=== PATIENT | male | born 1975 | race Caucasian/White ===

== ENCOUNTER 2021-07-04 07:58 | Outpatient (REF) | payer OTHER, SELFPAY ==
[2021-07-04 08:25] LABS: Hematocrit 40.3 % (42-52); Hemoglobin 14.1 g/dl (14.0-18.0); Mean Corpuscular Hemoglobin 30.9 pg (27.0-33.0); Mean Corpuscular Volume 88.4 fL (80-98); Mean Platelet Volume 10.1 fL (9.4-12.4); Platelet Count 217 X10*3/uL (160-400); Red Blood Count 4.56 X10*6/uL (4.60-5.80)
[2021-07-04 08:35] LABS: Estimated Average Glucose 108 mg/dL; Hemoglobin A1c % 5.4 %
[2021-07-04 09:13] LABS: Alanine Aminotransferase 102 U/L (0-40); Albumin Level 4.4 g/dL (3.5-5.0); Alkaline Phosphatase 57 U/L (39-117); Anion Gap 11 (12-20); Aspartate Amino Transferase 69 U/L (5-37); Bilirubin Total 0.8 mg/dL (0.0-1.0); Blood Urea Nitrogen 18 mg/dL (9-16); Calcium 9.5 mg/dL (8.4-10.2); Carbon Dioxide 28 mmol/L (22-29); Chloride 103 mmol/L (96-108); Cholesterol 176 mg/dL; Estimated Glomerular Filt Rate > 60; Glucose Fasting 116 mg/dL (60-99); HDL Cholesterol 34 mg/dL; LDL Cholesterol Calculated 84 mg/dl; Potassium 4.5 mmol/L (3.3-5.1); Sodium 137 mmol/L (135-145); Total Protein 7.2 g/dL (6.5-8.0); Triglycerides 293 mg/dL
[2021-07-04 09:35] LABS: TSH reflex Free T4 4.99 uIU/mL (0.32-4.0)
[2021-07-04 10:19] LABS: Free T4 (Free Thyroxine) 0.78 ng/dL (0.71-1.85)
[2021-07-04 11:30] LABS: Creatinine Urine 124.97 mg/dL; Microalbum/Creatinine Ratio Ur 11.2 ug/mg cr
== END 2021-07-04 07:59 | disposition home or self-care (01) ==
LOC: HO.LAB 07:58
PROVIDERS: PCP Physician Assistant; Visit Provider Physician Assistant
DX: I10 Essential (primary) hypertension (principal)
CPT/HCPCS: 36415; 80053; 80061; 82043; 83036; 84439; 84443; 85027

== ENCOUNTER 2022-08-15 10:35 | Emergency (ER) | payer OTHER, SELFPAY ==
--- NOTE | ~2022-08-15 | XR_ITS ---
EXAMINATION: XR FINGER, LEFT CLINICAL INFORMATION: Second digit pain status post injury COMPARISON: None TECHNIQUE: 3 views of the left index finger. FINDINGS: The bones and soft tissues are normal. No fracture. Alignment is anatomic. Joint spaces are maintained. XR/XR finger LT min 2V IMPRESSION: Normal finger radiographs.
[2022-08-15 10:54] VITALS: BP 147/88; PULSE 92; RESP 18; O2SAT 97; BMI 35.7
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
== END 2022-08-15 12:37 | disposition home or self-care (01) ==
PROVIDERS: Emergency Provider Emergency Medicine; PCP Physician Assistant
DX: S60.222A Contusion of left hand, initial encounter (principal); S60.022A Contusion of left index finger without damage to nail, initial encounter; Y33.XXXA Other specified events, undetermined intent, initial encounter; Y93.9 Activity, unspecified; Y92.9 Unspecified place or not applicable; Y99.0 Civilian activity done for income or pay; Z79.899 Other long term (current) drug therapy
CPT/HCPCS: 29130; 73140; 99282; 99283

== ENCOUNTER → 2022-08-16 07:45 | Outpatient (BNVA) | payer OTHER, SELFPAY | PROVIDERS: PCP Physician Assistant; Visit Provider Internal Medicine | DX: S63.631A Sprain of interphalangeal joint of left index finger, initial encounter (principal); Y33.XXXA Other specified events, undetermined intent, initial encounter | CPT/HCPCS: 99202 ==

== ENCOUNTER → 2022-11-20 10:13 | Outpatient (BNVA) | payer OTHER, SELFPAY | PROVIDERS: PCP Physician Assistant; Visit Provider Urology | DX: F41.8 Other specified anxiety disorders (principal) ==

== ENCOUNTER 2022-12-19 08:00 | Outpatient (REF) | payer OTHER, SELFPAY ==
[2022-12-19 10:48] LABS: MANUAL DIFF FLAG NO
[2022-12-19 10:59] LABS: Basophils Percent Auto 0.4 % (0-2); Eosinophils Absolute Auto 0.2 X10*3/uL (0.0-0.4); Eosinophils Percent Auto 2.6 % (0-4); Hematocrit 40.9 % (42.0-52.0); Hemoglobin 14.2 g/dl (14.0-18.0); Imm Gran Abs Auto 0.02 X10*3/uL (0.00-0.03); Imm Gran Pct Auto 0.3 % (0.0-0.4); Lymphocytes Absolute Auto 1.8 X10*3/uL (1.2-4.9); Lymphocytes Percent Auto 26.3 % (20-40); Mean Corpuscular HGB Conc 34.7 g/dl (31.0-36.0); Mean Corpuscular Hemoglobin 30.1 pg (27.0-33.0); Mean Corpuscular Volume 86.7 fL (80.0-98.0); Mean Platelet Volume 10.5 fL (9.4-12.4); Monocytes Absolute Auto 0.7 X10*3/uL (0.1-1.2); Monocytes Percent Auto 9.8 % (2-11); Neutrophils Absolute Auto 4.2 x10*3/uL (2.0-8.3); Neutrophils Percent Auto 60.6 % (45-73); Platelet Count 213 X10*3/uL (160-400); Red Blood Count 4.72 X10*6/uL (4.60-5.80); Red Cell Distribution Width 11.9 % (11.0-16.0); White Blood Count 6.9 X10*3/uL (4.8-10.8)
[2022-12-19 11:16] LABS: Estimated Average Glucose 160 mg/dL; Hemoglobin A1c % 7.2 %
[2022-12-19 11:36] LABS: Alanine Aminotransferase 90 U/L (0-40); Albumin Level 4.2 g/dL (3.5-5.0); Alkaline Phosphatase 62 U/L (39-117); Anion Gap 11 (12-20); Aspartate Amino Transferase 48 U/L (5-37); Bilirubin Total 0.8 mg/dL (0.0-1.0); Blood Urea Nitrogen 17 mg/dL (9-16); Calcium 9.2 mg/dL (8.4-10.2); Carbon Dioxide 29 mmol/L (22-29); Chloride 102 mmol/L (96-108); Cholesterol 165 mg/dL; Estimated Glomerular Filt Rate > 60; Glucose Random 147 mg/dL (60-115); HDL Cholesterol 26 mg/dL; LDL Cholesterol Calculated 104 mg/dl; Potassium 3.9 mmol/L (3.3-5.1); Sodium 138 mmol/L (135-145); Total Protein 6.6 g/dL (6.5-8.0); Triglycerides 178 mg/dL
[2022-12-19 11:42] LABS: Free T4 (Free Thyroxine) 0.78 ng/dL (0.71-1.85); Thyroid Stimulating Hormone 5.32 uIU/mL (0.32-4.0)
[2022-12-19 11:54] LABS: Folate 12.1 ng/mL (> or = 4.0); Vitamin B12 411 pg/mL (200-900)
== END 2022-12-19 08:01 | disposition home or self-care (01) ==
LOC: HO.10HDL 08:00
PROVIDERS: Visit Provider Internal Medicine
DX: I10 Essential (primary) hypertension (principal); E78.00 Pure hypercholesterolemia, unspecified
CPT/HCPCS: 36415; 80053; 80061; 82607; 82746; 83036; 84439; 84443; 85025

== ENCOUNTER → 2023-01-09 13:37 | Outpatient (BNVA) | payer OTHER, SELFPAY | PROVIDERS: PCP Physician Assistant; Visit Provider Urology | DX: Z30.2 Encounter for sterilization (principal); F41.8 Other specified anxiety disorders | CPT/HCPCS: 55250 ==

== ENCOUNTER → 2023-04-15 15:03 | Outpatient (BNVA) | payer OTHER, SELFPAY | PROVIDERS: PCP Physician Assistant; Visit Provider Urology ==

== ENCOUNTER 2023-07-18 15:03 | Outpatient (AMB) | payer OTHER, SELFPAY ==
--- NOTE | 2023-07-18 15:13 | A.OFFVIS_ITS ---
Intake Vital Signs 3 07/18/23 15:15 Height 5 ft 8 in Weight 233 lb 3.985 oz BMI 35.5 BP 136/77 Blood Pressure Location Lt brachial Position Sitting Pulse 86 Intake Visit Reasons: Colonoscopy Screening Intake Note: Patient presents to in office visit today as a new patient for colonoscopy screening. CC: Patient reports doing well. Denies having any GI symptoms today. Composition Worker Required: No Allergies No Known Allergies Allergy (Verified 07/18/23 15:22) HPI Colonoscopy Screening 2 HPI0 Details 47-year-old male here for preprocedural meeting to discuss a screening colonoscopy. He is referred by Jerome Moraes of [facility] primary care. PMX TAHIR Diabetes - he denies Obesity Elevated TSH Hypertension Health anxiety * SURGICAL HISTORY Appendecomy Vasectomy * ALLERGIES: NKDA * [place] LABS: Laboratory Tests 12/19/22 12/19/22 08:10 08:10 WBC 6.9 Hgb 14.2 Hct 40.9 L Plt Count 213 Estimated GFR > 60 Total Bilirubin 0.8 AST 48 H ALT 90 H Alkaline Phosphata se 62 TSH 5.32 H Free T4 0.78 TODAY'S VISIT This is his first colonoscopy. Denies any bowel or upper GI problems. There are no prior problems with anesthesia or sedation. He has TAHIR but no other respiratory problems and he denies any cardiac problems. No ID problems. There is no known FHX of crc or polyps. 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 Cognitive needs: No Hearing needs: No Vision needs: No Review of Systems Const Denies fatigue, Denies fever(s), Denies night sweats, Denies poor appetite and Denies weight loss ENT Reports Normal hearing present, Denies dental pain, Denies dysphagia, Denies hearing loss, Denies mouth pain, Denies odynophagia, Denies throat swelling, Denies tongue swelling and Reports other (Dentition adequate) Card Reports no additional complaints Resp Reports no additional complaints GI Denies abdominal pain, Denies melena, Denies bloating, Denies hematochezia, Denies constipation, Denies GI cramping, Denies dysphagia, Denies excessive flatus, Denies early satiety, Denies heartburn, Denies diarrhea, Denies nausea, Denies odynophagia, Denies vomiting and Denies hematemesis Skin/Breast Denies pruritus, Denies lesions, Denies rash and Denies jaundice Neuro Reports Normal hearing present and Denies Abnormal speech present Endo Denies fatigue Aller/Immun Denies throat swelling and Denies tongue swelling Physical Exam Vital Signs: Last Vital Signs Pulse 86 07/18/23 15:15 BP 136/77 07/18/23 15:15 BMI result Body Mass Index 35.5 Const General: cooperative, no acute distress, well developed and well groomed Nutritional Appearance: well nourished and obese centrally obese Orientation/consciousness: oriented to person, oriented to place and oriented to time Limitations: No language barrier HEENT Head: Yes normocephalic and Yes atraumatic Eyes General: appearance normal, both eyes and all related structures Pupils: Equal, round and reactive pupils present Neck Neck: Yes normal visual inspection and Yes no lymphadenopathy Thyroid: Thyroid normal Resp Effort & Inspection: normal respiratory effort and able to speak in complete sentences Auscultation: clear to auscultation bilaterally Cardio Rate: regular rate Rhythm: regular rhythm Heart sounds: Normal, physiologic split S2 sound present Peripheral pulses: radial pulses present and posterior tibial pulses present GI Inspection: No distended, No Abdominal panniculus present, Yes obesity and Yes striae Palpation (GI): Soft to palpation, nontender, no guarding, not rigid and No hepatosplenomegaly present Percussion: Yes normal to percussion Auscultation: normal bowel sounds Rectal Exam - Male: Yes deferred Abdomen image: 2 1. lap surgical scars 2. Skin General skin exam: no rashes or lesions noted, turgor normal, skin not dry, no jaundice, No spider nevi and no striae Rashes: no rashes Nails: normal Neuro General: oriented to person, oriented to place and oriented to time Cranial nerves: Yes Equal, round and reactive pupils present and Yes Normal hearing present Speech: No Abnormal speech present Extrem General: Yes normal to inspection, No clubbing, No cyanosis and No edema Psych Appearance: grossly normal and well kempt Mental Status: mental status grossly normal Speech and movement: Normal speech and movement present Affect: normal affect Attitude: cooperative Thought process: Normal thought process present and not confabulating Thought content: Normal thought content present Insight: Fair insight present (Psych) Judgement: Fair judgement present (Psych) Assessment & Plan Assessment & Plan (1) Pre-op examination: Code(s): Z01.818 - Encounter for other preprocedural examination Plan: This is his first colonoscopy. Denies any bowel or upper GI problems. There are no prior problems with anesthesia or sedation. He has TAHIR but no other respiratory problems and he denies any cardiac problems. No ID problems. There is no known FHX of crc or polyps. SUPREP SENT Orders: Orders 2 Colonoscopy - GI Use Only 07/18/23 Z01.818 - Encounter for other preprocedural examination Medications: New 2 sodium,potassium,mag sulfates 17.5-3.13-1.6 gram (Suprep Bowel Prep Kit) 480 mL orally; 354 mL 0RF Z01.818 - Encounter for other preprocedural examination Coding Level of Care Code New Pt Level 3 (29569) Diagnoses Pre-op examination Z01.818
[2023-07-18 15:15] VITALS: BP 136/77; PULSE 86; BMI 35.5
== END 2023-07-18 16:27 | disposition home or self-care (01) ==
PROVIDERS: PCP Physician Assistant; Visit Provider Nurse Practitioner
DX: Z01.818 Encounter for other preprocedural examination (principal)
CPT/HCPCS: 99203

== ENCOUNTER → 2023-07-18 15:03 | Outpatient (BNVA) | payer OTHER, SELFPAY | PROVIDERS: PCP Physician Assistant; Visit Provider Nurse Practitioner ==

== ENCOUNTER 2023-12-22 11:08 | Day surgery (SDC) | payer OTHER, SELFPAY ==
--- NOTE | 2023-12-19 10:19 | HO.ANESPROP2 ---
HPI - Anesthesia Eval Consult details Narrative: 48yo M for Colonoscopy PMF Active Problems Active Problems: All Active Problems (Updated 07/18/23 @ 15:25 by FRANCIS Mena) Pre-op examination (Acute) Annual physical exam (Acute) TAHIR (obstructive sleep apnea) (Acute) Colon cancer screening (Acute) DMII (diabetes mellitus, type 2) (Acute) Anxiety about health (Acute) Encounter for vasectomy assessment (Acute) Obese (Acute) Elevated TSH (Acute) HTN (hypertension) (Acute) Past Medical History Medical History TAHIR (obstructive sleep apnea) HTN (hypertension) Family History Family History Mother HTN (hypertension) Social History Social History Housing: House Alcohol intake: current Alcohol intake frequency: a few times a month Alcohol type: beer Patient Tobacco Use Status: Never used Tobacco e-Cigarette/Vaping Use: Never Used Second Hand Smoke Exposure: Yes service: No Current occupational status: employed 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
[2023-12-22 11:57] VITALS: BMI 35.2
[2023-12-22 12:10] VITALS: BP 113/70; PULSE 95; RESP 18; TEMP 36.9; O2SAT 95
--- NOTE | 2023-12-22 12:45 | MHC.SHP ---
Pre-Procedural Eval Section A - 24 Hr Update-Section A only Date of Service: 12/22/23 The patient is an INPATIENT: No The patient has been examined within 24 hours of the surgical procedure. The History & Physical has been completed within 30 days and I have reviewed it.: No Section B - Complete if H&P > 30 days Chief Complaint: Colon cancer screening Relevant Family History (Specify if Yes): No Relevant Social History: None Present Medications: see Short Stay Collaborative assessment Medical History: Significant History (TAHIR Diabetes - he denies Obesity Elevated TSH Hypertension ) History of Previous Operations: Relevant previous surgery/procedure and date(s) (Appendecomy Vasectomy) Allergies: Allergies Allergy/AdvReac Type Severity Reaction Status Date / Time No Known Allergies Allergy Verified 07/18/23 15:22 Review of Systems Sugical H&P ROS: Negative: Constitution, Cardiovascular, Respiratory and Gastrointestinal Exam Surgical H&P Exam: Normal: Heart, Normal: Lungs, Normal: Extremities and Normal: Abdomen Plan Diagnosis/Plan: Unchanged I have reviewed the history and physical and performed a pertinent physical examination on my patient. No changes have occurred unless specified. Time Spent With Patient Time: Total time managing care of this patient today ____ minutes.
--- NOTE | 2023-12-22 12:50 | HO.ANESPROP2 ---
[facility] Active Problems Active Problems: All Active Problems (Updated 12/22/23 @ 12:13 by Giovanna Shankar RN) Pre-op examination (Acute) Annual physical exam (Acute) Colon cancer screening (Acute) Anxiety about health (Acute) Encounter for vasectomy assessment (Acute) Obese (Acute) Elevated TSH (Acute) Past Medical History Medical History TAHIR (obstructive sleep apnea) HTN (hypertension) Functional capacity: independent ambulation Family History Family History Mother HTN (hypertension) Family history of problems with anesthesia: No Surgical History History of Problems with Anesthesia: No Social History Social History Housing: House Alcohol intake: current Alcohol intake frequency: a few times a month Alcohol type: beer Patient Tobacco Use Status: Never used Tobacco e-Cigarette/Vaping Use: Never Used Second Hand Smoke Exposure: Yes Have you been hit, kicked, punched, or otherwise hurt by someone within the past year? 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 Cognitive needs: No Hearing needs: No Vision needs: No Meds Allergies Allergy/AdvReac Type Severity Reaction Status Date / Time No Known Allergies Allergy Verified 07/18/23 15:22 Active Medications: Current Medications Lactated Ringer's (Lr) 1,000 mls @ 100 mls/hr IVCONT .Q10H [place]IL[place] Exam Height,Weight and Vital Signs: Height 5 ft 8 in Weight 105.143 kg Last Vital Signs Temp 98.4 F 12/22/23 12:10 Pulse 95 12/22/23 12:10 Resp 18 12/22/23 12:10 BP 113/70 12/22/23 12:10 Pulse Ox 95 12/22/23 12:10 O2 Del Method Room Air 12/22/23 12:10 Airway Mallampati Class: III TM Dist: >3cm Neck ROM: Full Heart: RRR Lungs: CTA Assessment and Plan Assessment Anesthesia Assessment: Anesthesia Plan Discussed Final Anesthetic Review Family History of Problems with Anesthesia: No History of Problems with Anesthesia: No NPO: Yes ASA Class: II and III Final Preanesthetic Review: Meds/Allgs Chart Reviewed, Consent Obtained/Reviewed and Anes Risks/Benef Reviewed Patient Risk: Intermediate Procedure Risk: Low Anesthetic Plan Anesthetic Plan: MAC: Disposition: Standard PACU
--- NOTE | 2023-12-22 13:39 | W.PM.OPN ---
Operative Note Operative Note Date of Service: 12/22/23 Narrative: COLONOSCOPY TILL CECUM WITH BIOPSIES, SNARE POLYPECTOMY, SUBMUCOSAL INJECTION AND HEMOCLIP PLACEMENT Pre-op diagnosis: Colon cancer screening (1st colonoscopy) Post-op diagnosis:? Colon polyps, diverticulosis, hemorrhoids Endoscopist:? Cheryl Orta MD Anesthesia:?MAC Consent: Indications for the procedure and potential complications of bleeding, perforation, reaction to medications and missed diagnosis were discussed with the patient and informed consent was obtained. Instrument: Olympus PCF H 190 L variable stiffness pediatric colonoscope Monitoring: Vital signs and clinical assessment, intermittent blood pressure monitoring, continuous EKG monitoring, Pulse oximetry and Carbon Dioxide monitoring were done throughout the procedure. Please see anesthesia flowsheet. Colon withdrawl time was 43 minutes. Procedure: The patient was placed in the left lateral decubitis position and pre-procedure medications were administered. After a digital rectal examination of the ano-rectum, the video colonoscope was inserted into the rectum and advanced through the colon to the cecum. The colonoscope was slowly withdrawn in a retrograde panoramic fashion and the colon mucosa was carefully examined including a retroflexed view of the rectum. Findings and interventions are described below. Procedure Difficulty: Colon was long and tortuous and there was excessive spasm and some loop formation Findings: Terminal Ileum: Not evaluated Cecum: A 4-5 mm sessile polyp -removed with a cold biopsy Ascending Colon: A 15 mm sessile polyp in the distal AC. Polyp was raised with 3 cc of Eleview and removed with a cold snare. Polypectomy site was closed with 1 hemoclip Transverse Colon: A 15 to 18 mm sessile polyp - removed with a hot snare. Polypectomy site was closed with 1 hemoclip Descending Colon: Moderate diverticulosis Sigmoid Colon: A 15 mm sessile polyp at 25 cms - removed with a hot snare. Polypectomy site was closed with 1 hemoclip. Moderate diverticulosis Rectum: A 10 mm sessile polyp in the distal rectum just inside the anal verge Ano-rectum: Moderate internal hemorrhoids Colon preparation: Good after copious irrigation and fair in the right colon Philadelphia Bowel Preparation Scale Right colon; 1 Transverse colon: 2 Left colon; 2 (0 = Unprepared colon segment with mucosa not seen due to solid stool that cannot be cleared. 1 = Portion of mucosa of the colon segment seen, but other areas of the colon segment not well seen due to staining, residual stool and/or opaque liquid. 2 = Minor amount of residual staining, small fragments of stool and/or opaque liquid, but mucosa of colon segment seen well. 3 = Entire mucosa of colon segment seen well with no residual staining, small fragments of stool or opaque liquid) Impression and Post Procedure Diagnosis: Colonoscopy Findings: One small and four medium sized polyps removed Moderate diverticulosis seen in the left colon Moderate hemorrhoids on retroflexed exam. Plan: Await pathology results Patient has an appointment on 01/06/24 in the GI [facility] with Zofia Quiroga NP. Repeat Colonoscopy interval based on path results - in 1 year if polyps are adenomatous and due to fair prep in the right colon. (Pt needs Dilcolax 2 tablets daily starting 3 days before his colon appt and an adult colonoscope for future colonoscopies) Above findings were reviewed with the patient and colon polyps and diverticulosis handouts were given in the discharge area
[2023-12-22 14:50] VITALS: BP 110/50; PULSE 86; RESP 16; TEMP 36.4; O2SAT 96
[2023-12-22 15:05] VITALS: BP 112/62; PULSE 73; RESP 20; TEMP 36.5; O2SAT 95
== END 2023-12-22 15:37 | disposition home or self-care (01) ==
PROVIDERS: PCP Physician Assistant; Visit Provider Internal Medicine Gastroenterology
PROC: 0DJD8ZZ Inspection of Lower Intestinal Tract, Via Natural or Artificial Opening Endoscopic (ICD-10-PCS; CPT 45378; principal; 2023-12-22 13:00)
DX: Z12.11 Encounter for screening for malignant neoplasm of colon (principal); D12.0 Benign neoplasm of cecum; D12.2 Benign neoplasm of ascending colon; D12.3 Benign neoplasm of transverse colon; D12.5 Benign neoplasm of sigmoid colon; D12.8 Benign neoplasm of rectum; K57.30 Diverticulosis of large intestine without perforation or abscess without bleeding; K64.8 Other hemorrhoids; K56.2 Volvulus; I10 Essential (primary) hypertension; G47.33 Obstructive sleep apnea (adult) (pediatric); Z99.89 Dependence on other enabling machines and devices; Z79.899 Other long term (current) drug therapy
CPT/HCPCS: 45385; 45380; 45381; 88305; J1610; J2250; J2704

== ENCOUNTER → 2023-12-22 11:08 | Outpatient (BNV) | payer OTHER, SELFPAY | PROVIDERS: PCP Physician Assistant; Visit Provider Internal Medicine Gastroenterology | DX: Z12.11 Encounter for screening for malignant neoplasm of colon (principal); D12.3 Benign neoplasm of transverse colon; D12.2 Benign neoplasm of ascending colon; D12.0 Benign neoplasm of cecum; K57.90 Diverticulosis of intestine, part unspecified, without perforation or abscess without bleeding; K64.8 Other hemorrhoids | CPT/HCPCS: 45380; 45381; 45385 ==

== ENCOUNTER 2024-01-06 08:11 | Outpatient (AMB) | payer OTHER, SELFPAY ==
--- NOTE | 2024-01-06 08:23 | MHC.OFFVIS ---
Intake Vital Signs 01/06/24 08:26 Height 5 ft 8 in Weight 225 lb BMI 34.2 BP 136/70 Blood Pressure Location Lt brachial Position Sitting Pulse 77 Intake Visit Reasons: s/p colon Intake Note: Patient follow up for Colonoscopy results. Patient denies any GI issues. Performance Improvement Specialist Required: No Accompanied by: Self / Same As Patient Allergies No Known Allergies Allergy (Verified 01/06/24 08:23) HPI s/p colon HPI Details Assessment & Plan (1) Pre-op examination: Code(s): Z01.818 - Encounter for other preprocedural examination Plan: This is his first colonoscopy. Denies any bowel or upper GI problems. There are no prior problems with anesthesia or sedation. He has TAHIR but no other respiratory problems and he denies any cardiac problems. No ID problems. There is no known FHX of crc or polyps. SUPREP SENT Orders: Orders Colonoscopy - GI U se Only 07/18/23 Z01.818 - Encounte r for other prepro cedural examinatio n Medications: New sodium,potassium,m ag sulfates 17.5-3 .13-1.6 gram (Supr ep Bowel Prep Kit) 480 mL orally; 35 4 mL 0RF Z01.818 - Encounte r for other prepro cedural examinatio n COLONOSCOPY 12/22/23 Findings: Terminal Ileum: Not evaluated Cecum: A 4-5 mm sessile polyp -removed with a cold biopsy Ascending Colon: A 15 mm sessile polyp in the distal AC. Polyp was raised with 3 cc of Eleview and removed with a cold snare. Polypectomy site was closed with 1 hemoclip Transverse Colon: A 15 to 18 mm sessile polyp - removed with a hot snare. Polypectomy site was closed with 1 hemoclip Descending Colon: Moderate diverticulosis Sigmoid Colon: A 15 mm sessile polyp at 25 cms - removed with a hot snare. Polypectomy site was closed with 1 hemoclip. Moderate diverticulosis Rectum: A 10 mm sessile polyp in the distal rectum just inside the anal verge Ano-rectum: Moderate internal hemorrhoids Colon preparation: Good after copious irrigation and fair in the right colon Impression and Post Procedure Diagnosis: Colonoscopy Findings: One small and four medium sized polyps removed Moderate diverticulosis seen in the left colon Moderate hemorrhoids on retroflexed exam. Plan: Await pathology results Patient has an appointment on 01/06/24 in the [facility] with Zofia Quiroga NP. Repeat Colonoscopy interval based on path results - in 1 year if polyps are adenomatous and due to fair prep in the right colon. (Pt needs Dilcolax 2 tablets daily starting 3 days before his colon appt and an adult colonoscope for future colonoscopies) BIOPSY Received: 12/22/23 Diagnosis A. Cecum, polypectomy: Tubular adenoma; negative for high-grade dysplasia or carcinoma. B. Colon, ascending, polypectomy: Tubular adenoma; negative for high-grade dysplasia or carcinoma. C. Colon, transverse, polypectomy: Tubular adenoma; negative for high-grade dysplasia or carcinoma. D. Colon, sigmoid at 25 cm, polypectomy: Fragments of tubular adenoma; negative for high-grade dysplasia or carcinoma. E. Rectum, polypectomy: Tubular adenoma; negative for high-grade dysplasia or carcinoma. TODAY'S VISIT The procedure needs to be repeated in 1 year due to the finding of 5 polyps several of them larger than 1 cm. He also needs better prep. The procedure was well tolerated. The results were explained and the patient is agreeable to the follow-up interval as stated. The bowel pattern has returned to normal. Education was provided to tell any 1st degree relatives about their findings to be sure that they are screened by age 45. Educated that they will be put on a recall list when it is time for their repeat scope but should they move out of state or away from the hospital they will need to remember along with their primary to repeat the procedure in a timely fashion to avoid any adverse complications. [facility] Medical History (Updated 01/06/24 @ 08:30 by FRANCIS Mena) Pre-op examination Annual physical exam Colon cancer screening TAHIR (obstructive sleep apnea) HTN (hypertension) Surgical History (Updated 01/06/24 @ 08:24 by Marian Mahoney) Hx of colonoscopy Family History Mother HTN (hypertension) Social History Housing: House Alcohol intake: current Alcohol intake frequency: a few times a month Alcohol type: beer Patient Tobacco Use Status: Never used Tobacco e-Cigarette/Vaping Use: Never Used Second Hand Smoke Exposure: Yes service: No Current occupational status: employed 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 Cognitive needs: No Hearing needs: No Vision needs: No Review of Systems Const Denies fatigue, Denies fever(s), Denies night sweats, Denies poor appetite and Denies weight loss ENT Reports Normal hearing present, Denies dental pain, Denies dysphagia, Denies hearing loss, Denies mouth pain, Denies odynophagia, Denies throat swelling, Denies tongue swelling and Reports other (Dentition adequate) Card Reports no additional complaints Resp Reports no additional complaints GI Details: Denies abdominal pain, Denies melena, Denies bloating, Denies hematochezia, Denies constipation, Denies GI cramping, Denies dysphagia, Denies excessive flatus, Denies early satiety, Denies heartburn, Denies diarrhea, Denies nausea, Denies odynophagia, Denies vomiting and Denies hematemesis Skin/Breast Denies pruritus, Denies lesions, Denies rash and Denies jaundice Neuro Reports Normal hearing present and Denies Abnormal speech present Endo Denies fatigue Aller/Immun Denies throat swelling and Denies tongue swelling Physical Exam Vital Signs: Last Vital Signs Pulse 77 01/06/24 08:26 BP 136/70 01/06/24 08:26 BMI result Body Mass Index 34.2 Const General: cooperative, no acute distress, well developed and well groomed Nutritional Appearance: well nourished and obese Orientation/consciousness: oriented to person, oriented to place and oriented to time Limitations: No language barrier HEENT Head: Yes normocephalic and Yes atraumatic Eyes General: appearance normal, both eyes and all related structures Pupils: Equal, round and reactive pupils present Neck Neck: Yes normal visual inspection and Yes no lymphadenopathy Thyroid: Thyroid normal Resp Effort & Inspection: normal respiratory effort and able to speak in complete sentences Auscultation: clear to auscultation bilaterally Cardio Rate: regular rate Rhythm: regular rhythm Heart sounds: Normal, physiologic split S2 sound present Peripheral pulses: radial pulses present and posterior tibial pulses present GI Inspection: No distended and No Abdominal panniculus present Palpation (GI): Soft to palpation, nontender, no guarding, not rigid and No hepatosplenomegaly present Percussion: Yes normal to percussion Auscultation: normal bowel sounds Rectal Exam - Male: Yes deferred Skin General skin exam: no rashes or lesions noted, turgor normal, skin not dry, no jaundice, No spider nevi and no striae Rashes: no rashes Nails: normal Neuro General: oriented to person, oriented to place and oriented to time Cranial nerves: Yes Equal, round and reactive pupils present and Yes Normal hearing present Speech: No Abnormal speech present Extrem General: Yes normal to inspection, No clubbing, No cyanosis and No edema Psych Appearance: grossly normal and well kempt Mental Status: mental status grossly normal Speech and movement: Normal speech and movement present Affect: normal affect Attitude: cooperative Thought process: Normal thought process present and not confabulating Thought content: Normal thought content present Insight: Fair insight present (Psych) Judgement: Fair judgement present (Psych) Assessment & Plan Assessment & Plan (1) Tubular adenoma of colon: Comment: 2023 SCOPE= TA X5 REPEAT IN 1 YEAR, insufficient prep make sure he takes 2 Dulcolax tablets 3 days prior along with the usual prep Code(s): D12.6 - Benign neoplasm of colon, unspecified Plan The procedure needs to be repeated in 1 year due to the finding of 5 polyps several of them larger than 1 cm. He also needs better prep. The procedure was well tolerated. The results were explained and the patient is agreeable to the follow-up interval as stated. The bowel pattern has returned to normal. Education was provided to tell any 1st degree relatives about their findings to be sure that they are screened by age 45. Educated that they will be put on a recall list when it is time for their repeat scope but should they move out of state or away from the hospital they will need to remember along with their primary to repeat the procedure in a timely fashion to avoid any adverse complications. He says he did not have any trouble with the prep and completed at all. The only thing we reviewed was that he should mix it with something sweet because he only used water and then the taste was bothersome to him. He denies having any food that day and he followed the clear liquid diet. I suggested we will do 2 Dulcolax 3 days before and then the usual PEG prep for his next colonoscopy. Medications: New peg 3350-electrolytes 236-22.74-6.74 -5.86 gram (Golytely) until fecal effluent is clear; do not exceed a total volume of 2,000 mL 240 mL PO Q10M 4,000 mL 0RF 1 day Z12.11 - Encounter for screening for malignant neoplasm of colon bisacodyl (Dulcolax (bisacodyl)) 10 mg (2 x 5 mg) PO BEDTIME 16 tabs 0RF 8 days Coding Level of Care Code Est Pt Level 3 (36745) Diagnoses Tubular adenoma of colon D12.6
[2024-01-06 08:26] VITALS: BP 136/70; PULSE 77; BMI 34.2
== END 2024-01-06 08:39 | disposition home or self-care (01) ==
PROVIDERS: PCP Physician Assistant; Visit Provider Nurse Practitioner
DX: D12.6 Benign neoplasm of colon, unspecified (principal)
CPT/HCPCS: 99213

== ENCOUNTER → 2024-01-06 08:11 | Outpatient (BNVA) | payer OTHER, SELFPAY | PROVIDERS: PCP Physician Assistant; Visit Provider Nurse Practitioner ==

== ENCOUNTER 2024-02-05 07:40 | Outpatient (REF) | payer OTHER, SELFPAY ==
[2024-02-05 11:00] LABS: Hematocrit 40.5 % (42.0-52.0); Hemoglobin 14.6 g/dl (14.0-18.0); Mean Corpuscular Hemoglobin 30.9 pg (27.0-33.0); Mean Corpuscular Volume 85.6 fL (80.0-98.0); Mean Platelet Volume 9.6 fL (9.4-12.4); Platelet Count 185 X10*3/uL (160-400); Red Blood Count 4.73 X10*6/uL (4.60-5.80); Red Cell Distribution Width 12.1 % (11.0-16.0); White Blood Count 5.6 X10*3/uL (4.8-10.8)
[2024-02-05 11:34] LABS: Alanine Aminotransferase 114 U/L (0-40); Albumin Level 4.2 g/dL (3.5-5.0); Alkaline Phosphatase 83 U/L (39-117); Anion Gap 11 (12-20); Aspartate Amino Transferase 69 U/L (5-37); Bilirubin Total 0.6 mg/dL (0.0-1.0); Blood Urea Nitrogen 11 mg/dL (9-16); Calcium 9.4 mg/dL (8.4-10.2); Carbon Dioxide 28 mmol/L (22-29); Chloride 101 mmol/L (96-108); Cholesterol 153 mg/dL (<200); Estimated Glomerular Filt Rate > 60; Glucose Fasting 297 mg/dL (60-99); HDL Cholesterol 25 mg/dL (>40); Potassium 3.9 mmol/L (3.3-5.1); Sodium 136 mmol/L (135-145); TSH reflex Free T4 4.18 uIU/mL (0.32-4.0); Triglycerides 508 mg/dL (<150)
[2024-02-05 11:41] LABS: Creatinine Urine 139.95 mg/dL; Microalbum/Creatinine Ratio Ur 69.3 ug/mg cr (<30)
[2024-02-05 12:11] LABS: Free T4 (Free Thyroxine) 0.84 ng/dL (0.71-1.85)
== END 2024-02-05 07:41 | disposition home or self-care (01) ==
LOC: HO.10HDL 07:40
PROVIDERS: Visit Provider Physician Assistant
DX: R79.89 Other specified abnormal findings of blood chemistry (principal); E87.1 Hypo-osmolality and hyponatremia; I10 Essential (primary) hypertension
CPT/HCPCS: 36415; 80053; 80061; 82043; 82570; 84439; 84443; 85027

== ENCOUNTER 2024-02-10 12:37 | Outpatient (AMB) | payer OTHER, SELFPAY ==
[2024-02-10 12:38] VITALS: BP 126/72; PULSE 75; RESP 16; O2SAT 97; BMI 34.8
--- NOTE | 2024-02-10 12:38 | MHC.PC.OV ---
Vital Signs 02/10/24 12:38 Height 5 ft 8 in Weight 229 lb 2 oz BMI 34.8 BP 126/72 Blood Pressure Location Lt brachial Position Sitting Respiration 16 Pulse 75 Pulse Source Pulse Oximeter Pulse Oximetry (%) 97 Oxygen Delivery Method Room Air Intake Visit Reasons: Per PCP labs results Applications Engineering Manager Required: No Accompanied by: Self / Same As Patient Allergies No Known Allergies Allergy (Verified 02/10/24 13:11) Medication List - Last Reconciled 02/10/24 by Jerome Moraes PA-C amlodipine 10 mg PO DAILY 90 days bisacodyl (Dulcolax (bisacodyl)) 10 mg (2 x 5 mg) PO BEDTIME 8 days blood pressure test kit-large As directed CPAP (CPAP Machine/Device) As directed lisinopril-hydrochlorothiazide 20-12.5 mg 1 tab PO DAILY 90 days peg 3350-electrolytes 236-22.74-6.74 -5.86 gram (Golytely) 240 mL PO Q10M 1 day Tobacco use date assessed: 02/10/24 Dental Screening Dental Screen Date: 02/10/24 Did you have a dental visit in the last 12 months?: Yes Did you have a dental problem in the last 6 months where you did not have access to dental care?: No Was dental information given to patient?: Patient has dentist HPI Per PCP labs results HPI Details patient is a 48-year-old male here today for a follow-up visit Pmhx HTN, TAHIR, Obese, type 2 diabetes . HTN:? Blood pressure acceptable today in office. Continues on amlodipine and lisinopril with decent affect. He denies any chest discomfort, dizziness headaches or blurred vision. .. Type 2 diabetes: Most recent labs showing elevated fasting blood sugar above 200 and today's A1c at 9.9 from 7.2. He does report his diet has been poor and has not been doing much exercise. We did discuss the need to start medication to reduce his blood sugars though patient would like to work extensively on lifestyle modifications over the next 3-4 months. .. Hypothyroid: Noted over the last 3 blood draws his TSH has been slightly elevated. He is now willing to start levothyroxine 25 mcg in the morning on empty stomach. Will recheck TSH in 6 weeks. .. Hyperlipidemia: Most recent lipid panel showing very elevated triglycerides which may be related to his hyperglycemia. He will work extensively on diet and lifestyle modifications and if triglycerides remain above 500 will consider both cholesterol and anti hyperglycemic medication [facility] Medical History (Updated 02/10/24 @ 13:20 by Jerome Moraes PA-C) HTN (hypertension) Pre-op examination Annual physical exam Colon cancer screening TAHIR (obstructive sleep apnea) Surgical History Hx of colonoscopy Family History Mother HTN (hypertension) Social History Housing: House Alcohol intake: current Alcohol intake frequency: a few times a month Alcohol type: beer Patient Tobacco Use Status: Never used Tobacco e-Cigarette/Vaping Use: Never Used Second Hand Smoke Exposure: Yes service: No Current occupational status: employed 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 1. Little interest or pleasure in doing things: not at all 2. Feeling down, depressed, or hopeless: not at all 3. Trouble falling or staying asleep, or sleeping too much: not at all 4. Feeling tired or having little energy: not at all 5. Poor appetite or overeating: not at all 6. Feeling bad about yourself - or that you are a failure or have let yourself or your family down: not at all 7. Trouble concentrating on things, such as reading the newspaper or watching television: not at all 8. Moving or speaking so slowly that other people could have noticed. Or the opposite - being so fidgety or restless that you have been moving around a lot more than usual: not at all 9. Thoughts that you would be better off or of hurting yourself in some way: not at all Total score: 0 Depression Screening Interpretation: Negative Depression Screening Done: Yes 04298 - PHQ-9 Billing: Yes Source: Developed by Drs. Lester Guzman, Nae Martinez, Aj Be and colleagues, with an educational coleen from [employer]. Thrive Questionnaire Date Thrive assessed: 02/10/24 I am a: Patient What is your living situation today?: I have a steady place to live Within the past 12 months, did the food you bought not last and you didn't have the money to get more?: Never true Within the past 12 months, did you worry whether your food would run out before you got money to buy more?: Never true Do you have trouble paying for medicines?: No Do you have trouble getting transportation to medical appointments?: No Do you have trouble paying your heating and electricity bill?: No Do you have trouble taking care of your child, family member or friend?: No Do you have trouble with day-to-day activities such as bathing, preparing meals, shopping, managing finances, etc.?: No Are you currently unemployed and looking for a job?: No Are you interested in more education?: No Please select the resources that you would like help with: None Currently or been in a relationship where the following occur: no concerns reported THRIVE Score: 0 AUDIT C Alcohol Use Questionnaire (AUDIT-C) 1. How often do you have a drink containing alcohol?: 2-4 times a month 2. How many drinks containing alcohol do you have on a typical day when you are drinking?: 3 or 4 (Beer and sometimes Vodka) 3. How often do you have six or more drinks on one occasion?: Never Total Score: 3 LEIF-7 AMB Questionnaire LEIF-7 Date LEIF - 7 assessed: 02/10/24 Feeling nervous, anxious, or on edge: 0 = Not at all Not being able to stop or control worryin = Not at all Worrying too much about different things: 0 = Not at all Trouble relaxin = Not at all Being so restless that it is hard to sit still: 0 = Not at all Becoming easily annoyed or irritable: 0 = Not at all Feeling afraid as if something awful might happen: 0 = Not at all Total LEIF-7 score (0-4 normal; 5-9 mild; 10-14 moderate; 15-21 severe): 0 Source: Developed by Drs. Lester Guzman, Nae Martinez, Aj Be and colleagues, with an educational coleen from [employer]. LEIF-7 Assessment Billing LEIF-7 Assessment Tool: LEIF-7 Assessment 13396 Review of Systems Const Denies headache(s) Eyes Denies loss of vision ENT Denies vertigo, Denies dizziness, Denies headache(s) and Denies sore throat Card Denies chest pain, Denies leg edema and Denies lightheadedness Resp Denies cough, Denies hemoptysis and Denies wheezing GI Denies abdominal pain, Denies melena, Denies constipation, Denies diarrhea and Denies vomiting Denies dysuria, Denies urinary frequency and Denies urinary urgency Musc Denies arthralgias, Denies joint swelling, Denies numbness and Denies tingling Neuro Denies Abnormal speech present, Denies behavioral changes, Denies vertigo, Denies dizziness, Denies headache(s), Denies loss of vision, Denies memory loss, Denies numbness and Denies tingling Psych Denies anxiety, Denies behavioral changes, Denies depression, Denies memory loss and Denies panic attacks Kris/Lymph Denies easy bleeding and Denies easy bruising Aller/Immun Denies wheezing Physical exam (Primary Care) Vital Signs: Last Vital Signs Pulse 75 02/10/24 12:38 Resp 16 02/10/24 12:38 BP 126/72 02/10/24 12:38 Pulse Ox 97 02/10/24 12:38 Oxygen Delivery Method Room Air 02/10/24 12:38 BMI result Body Mass Index 34.8 Tobacco/Smoking Status: Tobacco use Status Tobacco use date assessed 02/10/24 02/10/24 12:39 Patient Tobacco Use Status Never used Tobacco 02/10/24 12:39 e-Cigarette/Vaping Use Never Used 02/10/24 12:39 PHQ-9: PHQ-9 Score PHQ-9: Total score 0 02/10/24 13:35 Depression Screening Interpretation: Negative Thrive Assessment: Date of Thrive Assessment Date Thrive assessed 02/10/24 02/10/24 12:39 Currently or been in a relationship where the following occur: no concerns reported Const General: healthy appearing, no acute distress, alert and awake Nutritional Appearance: well nourished Orientation/consciousness: oriented to person, oriented to place and oriented to time HENMT Ears: TM's normal bilaterally General nose exam: Normal nasal mucous membranes and turbinates present Eyes Conjunctivae: conjunctivae normal Sclerae: sclerae normal Pupils: Equal, round and reactive pupils present Neck Neck: Yes no lymphadenopathy and Yes no JVD Thyroid: Thyroid normal Carotids: no bruits Resp Effort & Inspection: normal respiratory effort and not tachypneic Auscultation: no crackles, no rales, no rhonchi and no wheezes Cardio Rate: regular rate Rhythm: regular rhythm Heart sounds: no murmurs and normal S1 and S2 GI Palpation (GI): Soft to palpation, nontender, no hepatomegaly and no splenomegaly Auscultation: normal bowel sounds Skin General skin exam: no rashes or lesions noted and dry skin Neuro General: oriented to person, oriented to place and oriented to time Cranial nerves: Yes Equal, round and reactive pupils present Speech: No Abnormal speech present Gait exam (Neuro): Normal gait present Motor exam (neuro): no tremor noted Extrem Right upper extremity: full ROM Left upper extremity: full ROM Right lower extremity: full ROM; no edema Left lower extremity: full ROM; no edema Psych Mental Status: mental status grossly normal Speech and movement: Normal speech and movement present Affect: normal affect Attitude: cooperative Thought process: Normal thought process present Results AMB Hemoglobin A1c AMB Hemoglobin A1c 9.9 % Last Edit by DANIELLE Braun on 02/10/24 13:37 Results Reviewed Results Reviewed: Laboratory Last Values Hgb A1c (Clinic) 9.9 % (4.0-6.0) H 02/10/24 13:36 Assessment and Plan Assessment & Plan (1) DMII (diabetes mellitus, type 2): Code(s): E11.9 - Type 2 diabetes mellitus without complications Qualifiers: Diabetes mellitus complication status: with hyperglycemia Diabetes mellitus superintendent container terminal insulin use: without shelter use Qualified Code(s): E11.65 - Type 2 diabetes mellitus with hyperglycemia Plan: Patient's type 2 diabetes uncontrolled. Today's A1c at 9.9 from 7.2. He does admit to dietary indiscretion and would like to work extensively on diabetic diet and reducing alcohol intake.. Offered him p.o. anti glycemic medication though he declines at this time. (2) HTN (hypertension): Code(s): I10 - Essential (primary) hypertension Qualifiers: Hypertension type: primary hypertension Qualified Code(s): I10 - Essential (primary) hypertension Plan: Patient's blood pressure acceptable today in office, he reports that home blood pressures have been fairly well controlled. He otherwise denies any chest discomfort, headaches, vision issues. Goal blood pressure be below 140/90 (3) Obese: Code(s): E66.9 - Obesity, unspecified Qualifiers: Body mass index: BMI 37.0-37.9 Obesity classification: adult class 2 (BMI 35 - 39.9) Obesity type: due to excess calories Serious obesity comorbidity presence: without serious comorbidity Qualified Code(s): E66.09 - Other obesity due to excess calories; Z68.37 - Body mass index [BMI] 37.0-37.9, adult Plan: Patient does understand his BMI is over 30 will work on lifestyle (4) Hypothyroid: Code(s): E03.9 - Hypothyroidism, unspecified Qualifiers: Hypothyroidism type: unspecified Qualified Code(s): E03.9 - Hypothyroidism, unspecified Plan: Noted elevated TSH. He is willing to now start levothyroxine 25 mcg. Will recheck TSH in 6 weeks. (5) Hypertriglyceridemia: Code(s): E78.1 - Pure hyperglyceridemia Plan: Most recent fasting lipid panel showing very elevated triglycerides above 500. Not interested in starting any cholesterol medication at this time would like to work on lifestyle and dietary modifications. Orders: Orders TSH reflex Free T4 6 Weeks E03.9 - Hypothyroidism, unspecified Comprehensive Ronald. Panel Fast 02/10/24 I10 - Essential (primary) hypertension Lipid Panel 02/10/24 E78.1 - Pure hyperglyceridemia AMB Hemoglobin A1c 02/10/24 E11.9 - Type 2 diabetes mellitus without complications Medications: New levothyroxine 25 mcg PO DAILY 30 days 30 tabs 1RF E03.9 - Hypothyroidism, unspecified Refilled lisinopril-hydrochlorothiazide 20-12.5 mg 1 tab PO DAILY 90 days 90 tabs 1RF I10 - Essential (primary) hypertension amlodipine 10 mg PO DAILY 90 days 90 tabs 1RF I10 - Essential (primary) hypertension Coding Level of Care Code Est Pt Level 4 (64866) Diagnoses Type 2 diabetes mellitus with hyperglycemia, without long-term current use of insulin E11.65 Diabetes mellitus complication status: with hyperglycemia Diabetes mellitus shelter insulin use: without superintendent container terminal use Primary hypertension I10 Hypertension type: primary hypertension Class 2 obesity due to excess calories without serious comorbidity with body mass index (BMI) of 37.0 to 37.9 in adult E66.09; Z68.37 Body mass index: BMI 37.0-37.9 Obesity classification: adult class 2 (BMI 35 - 39.9) Obesity type: due to excess calories Serious obesity comorbidity presence: without serious comorbidity Hypothyroidism, unspecified type E03.9 Hypothyroidism type: unspecified Hypertriglyceridemia E78.1 Additional Codes LEIF-7 Assessment Billing - LEIF-7 Assessment Tool: LEIF-7 Assessment 38257 ([id number])
== END 2024-02-10 14:05 | disposition home or self-care (01) ==
PROVIDERS: PCP Physician Assistant; Visit Provider Physician Assistant
DX: E11.9 Type 2 diabetes mellitus without complications (principal)
CPT/HCPCS: 83036; 99214

== ENCOUNTER 2024-04-14 07:53 | Outpatient (REF) | payer OTHER, SELFPAY ==
[2024-04-14 11:17] LABS: Alanine Aminotransferase 47 U/L (0-40); Albumin Level 4.3 g/dL (3.5-5.0); Alkaline Phosphatase 77 U/L (39-117); Anion Gap 12 (12-20); Aspartate Amino Transferase 32 U/L (5-37); Bilirubin Total 0.4 mg/dL (0.0-1.0); Blood Urea Nitrogen 12 mg/dL (9-16); Calcium 9.3 mg/dL (8.4-10.2); Carbon Dioxide 26 mmol/L (22-29); Chloride 104 mmol/L (96-108); Cholesterol 157 mg/dL (<200); Estimated Glomerular Filt Rate > 60; Glucose Fasting 181 mg/dL (60-99); HDL Cholesterol 34 mg/dL (>40); LDL Cholesterol Calculated 73 mg/dL (<100); Potassium 3.9 mmol/L (3.3-5.1); Sodium 138 mmol/L (135-145); Total Protein 7.1 g/dL (6.5-8.0); Triglycerides 252 mg/dL (<150)
[2024-04-14 11:31] LABS: TSH reflex Free T4 3.62 uIU/mL (0.32-4.0)
== END 2024-04-14 07:54 | disposition home or self-care (01) ==
LOC: HO.10HDL 07:53
PROVIDERS: Visit Provider Physician Assistant
DX: E78.1 Pure hyperglyceridemia (principal); I10 Essential (primary) hypertension; E03.9 Hypothyroidism, unspecified
CPT/HCPCS: 36415; 80053; 80061; 84443

== ENCOUNTER 2024-04-22 15:26 | Outpatient (AMB) | payer OTHER, SELFPAY ==
[2024-04-22 15:29] VITALS: BP 130/72; PULSE 70; O2SAT 98; BMI 34.9
--- NOTE | 2024-04-22 15:29 | A.OFFPC_ITS ---
Vital Signs 04/22/24 15:29 Height 5 ft 8 in Weight 229 lb 8 oz BMI 34.9 BP 130/72 Blood Pressure Location Lt brachial Position Sitting Pulse 70 Pulse Source Pulse Oximeter Pulse Oximetry (%) 98 Oxygen Delivery Method Room Air Intake Visit Reasons: Annual physical Intake Note: Patient is here today for a physical. 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 Accompanied by: Self / Same As Patient Allergies No Known Allergies Allergy (Verified 04/22/24 15:49) Medication List - Last Reconciled 04/22/24 by Jerome Moraes PA-C amlodipine 10 mg PO DAILY 90 days bisacodyl (Dulcolax (bisacodyl)) 10 mg (2 x 5 mg) PO BEDTIME 8 days blood pressure test kit-large As directed CPAP (CPAP Machine/Device) As directed levothyroxine 25 mcg PO DAILY 30 days lisinopril-hydrochlorothiazide 20-12.5 mg 1 tab PO DAILY 90 days peg 3350-electrolytes 236-22.74-6.74 -5.86 gram (Golytely) 240 mL PO Q10M 1 day Tobacco use date assessed: 02/10/24 Dental Screening Dental Screen Date: 02/10/24 HPI Annual physical HPI Details patient is a 48-year-old male here today for a routine annual physical Pmhx HTN, TAHIR, Obese, type 2 diabetes . HTN:? Blood pressure acceptable today in office. Continues on amlodipine and lisinopril with decent affect. He denies any chest discomfort, dizziness heada ches or blurred vision. .. Type 2 diabetes: Most recent labs showing much improved fasting blood sugar. He has been making dietary and lifestyle modifications. .. Hypothyroid: Recently started levothyroxine 25 mcg. TSH has normalized. Also his fasting cholesterol panel namely his triglycerides have drastically reduced. .. Hyperlipidemia: Most recent lipid panel showing much improved triglycerides and appropriate total cholesterol and LDL. He will work extensively on diet and lifestyle modifications and if triglycerides remain above 500 will consider both cholesterol and anti hyperglycemic medication. TAHIR : Continues to use CPAP machine on a nightly basis with good effect on sleep. VAccine: UTD With COVID vaccine, Declines Flu, Need Tdap and PCV- 20 .. colonoscopy: Colonoscopy done in early 2023, 5 polyps were found that were tubular adenoma. Needed repeat 1 year [facility] Medical History (Updated 04/22/24 @ 16:11 by Jerome Moraes PA-C) Annual physical exam TAHIR (obstructive sleep apnea) HTN (hypertension) Pre-op examination Colon cancer screening Surgical History Hx of colonoscopy Family History (Updated 04/22/24 @ 15:54 by Jerome Moraes PA-C) Mother HTN (hypertension) Father Liver cancer Social History (Updated 04/22/24 @ 15:54 by Jerome Moraes PA-C) Housing: House Alcohol intake: current Alcohol intake frequency: a few times a month Alcohol type: beer Patient Tobacco Use Status: Never used Tobacco e-Cigarette/Vaping Use: Never Used Second Hand Smoke Exposure: Yes service: No Current occupational status: employed 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 Lester Guzman, Nae Martinez, Aj Be and colleagues, with an educational coleen from [employer]. Review of Systems Const Denies body aches, Denies chills, Denies excessive sweating, Denies fatigue, Denies fever(s) and Denies headache(s) Eyes Denies blurry vision ENT Denies dysphagia, Denies vertigo, Denies dizziness, Denies headache(s), Denies hearing loss and Denies tinnitus Card Denies chest pain, Denies chest pain with activity, Denies syncope, Denies irregular heart rhythm and Denies dyspnea Resp Denies chest congestion, Denies cough, Denies hemoptysis, Denies dyspnea and Denies wheezing GI Denies abdominal pain, Denies melena, Denies hematochezia, Denies coffee ground emesis, Denies dysphagia, Denies diarrhea, Denies nausea and Denies vomiting Denies difficulty urinating, Denies dysuria, Denies urinary frequency, Denies urinary hesitancy and Denies urinary urgency Musc Denies arthralgias, Denies limited range of motion, Denies muscle cramps and Denies muscle weakness Skin/Breast Denies rash and Denies skin ulcer Neuro Denies Abnormal speech present, Denies confusion, Denies vertigo, Denies dizziness, Denies syncope, Denies headache(s), Denies memory loss and Denies seizure-like activity Psych Denies anxiety, Denies confusion, Denies depression, Denies memory loss, Denies panic attacks and Denies paranoia Endo Denies excessive sweating, Denies fatigue, Denies flushing, Denies polydipsia and Denies polyuria Aller/Immun Denies wheezing Physical exam (Primary Care) Vital Signs: Last Vital Signs Pulse 70 04/22/24 15:29 BP 130/72 04/22/24 15:29 Pulse Ox 98 04/22/24 15:29 Oxygen Delivery Method Room Air 04/22/24 15:29 BMI result Body Mass Index 34.9 Tobacco/Smoking Status: Tobacco use Status Tobacco use date assessed 02/10/24 04/22/24 15:34 Patient Tobacco Use Status Never used Tobacco 04/22/24 15:54 e-Cigarette/Vaping Use Never Used 04/22/24 15:54 Thrive Assessment: Date of Thrive Assessment Date Thrive assessed 02/10/24 04/22/24 15:34 Const General: cooperative, comfortable, no acute distress, alert and awake; No confusion Orientation/consciousness: oriented to person, oriented to place, patient oriented x3 and No confusion HENMT Head: Yes normocephalic Ears: external ears normal and TM's normal bilaterally Face and sinus: No sinus tenderness Mouth: Normal oral and palatal mucosa present and tongue normal Teeth and gingiva: dentition normal and gingiva normal Throat: Yes posterior oropharynx normal, Yes tonsils normal and Yes uvula midline Eyes Conjunctivae: conjunctivae normal Sclerae: sclerae normal Pupils: Equal, round and reactive pupils present EOM: EOMs intact bilaterally Direct Ophthalmoscopy: No no photophobia Neck Neck: Yes no lymphadenopathy, No tender and Yes no JVD Thyroid: Thyroid normal Carotids: no bruits Chest Chest palpation & inspection: no tenderness Resp Effort & Inspection: normal respiratory effort, no audible wheezes, not labored and no stridor Auscultation: no crackles, no rales, no rhonchi and no wheezes Cardio Jugular venous distension: no JVD Rate: regular rate, not bradycardic and not tachycardic Rhythm: regular rhythm Bruits: no carotid bruits Peripheral pulses: Peripheral pulses 2+ throughout GI Inspection: Yes normal to inspection, No abdominal wall ecchymosis and No visible herniation Palpation (GI): Soft to palpation, nontender, no guarding, not rigid and No hepatosplenomegaly present Auscultation: normoactive bowel sounds General: Yes no CVA tenderness Back/Spine/Pelvis Back: no CVA tenderness and No back tenderness Cervical Spine: cervical ROM normal Thoracic/Lumbar Spine: thoracic and lumbar spine normal to inspection, straight leg raise negative bilaterally, No thoraco-lumbar ROM limited and No lumbar spinal tenderness Skin Lesions: no lesions Rashes: no rashes Wounds: no wounds Neuro General: oriented to person, oriented to place, patient oriented x3, CN's II-XI intact bilaterally and No confusion Cranial nerves: Yes Equal, round and reactive pupils present and Yes Normal accommodation reflex present Cognition (Neuro): normal cognition Speech: No Abnormal speech present Gait exam (Neuro): Normal gait present Motor exam (neuro): 5/5 motor strength present throughout Extrem Right upper extremity: full ROM; no cyanosis Left upper extremity: full ROM; no cyanosis Right lower extremity: no edema Left lower extremity: no edema Psych Appearance: grossly normal Mental Status: mental status grossly normal Affect: normal affect Attitude: cooperative Thought process: Normal thought process present Immunizations Boostrix Tdap 2.5 Lf unit-8 mcg-5 Lf/0.5 mL intramuscular syringe Performing Provider: Jerome Moraes PA-C Performing Location: [facility] Administered by: DANIELLE Braun on 04/22/24 16:14 Dose Route Admin Location Dispensed Lot Number Expiration Date NDC Windows Administrator 0.5 mL IM Left Deltoid 0.5 mL [id number] 07/01/26 65634-978-82 [employer] VIS Given Date VIS Provided VIS Publication Date 04/22/24 Single Vaccine 21 Eligibility Eligibility Date Funding Source Not [facility] Eligible 04/22/24 Private Assessment and Plan Assessment & Plan (1) Annual physical exam: Code(s): Z00.00 - Encounter for general adult medical examination without abnormal findings (2) DMII (diabetes mellitus, type 2): Code(s): E11.9 - Type 2 diabetes mellitus without complications Qualifiers: Diabetes mellitus complication status: with hyperglycemia Diabetes mellitus intermodal customer service insulin use: without intermodal customer service use Qualified Code(s): E11.65 - Type 2 diabetes mellitus with hyperglycemia Plan: Patient's type 2 diabetes uncontrolled. Most recent A1c at 9.9. Did get repeat labs and fasting blood sugar drastically improved though still elevated at 180 He has been working extensively on diabetic diet and reducing his alcohol intake. Offered him p.o. anti glycemic medication though he declines at this time. Goal A1c is to be below 7.0 (3) HTN (hypertension): Code(s): I10 - Essential (primary) hypertension Qualifiers: Hypertension type: primary hypertension Qualified Code(s): I10 - Essential (primary) hypertension Plan: Patient's blood pressure acceptable today in office, he reports that home blood pressures have been fairly well controlled. He otherwise denies any chest discomfort, headaches, vision issues. Goal blood pressure be below 140/90 (4) Hypothyroid: Code(s): E03.9 - Hypothyroidism, unspecified Qualifiers: Hypothyroidism type: unspecified Qualified Code(s): E03.9 - Hypothyroidism, unspecified Plan: Patient's most recent TSH has stabilized. Continues on levothyroxine 25 mcg every morning. Will continue to follow TSH to assure normal. (5) Hypertriglyceridemia: Code(s): E78.1 - Pure hyperglyceridemia Plan: Most recent fasting lipid panel much improved triglycerides since starting levothyroxine. Continue to follow fasting lipids with goal LDL to be below 100 and triglycerides to be below 250. Patient will continue on dietary and lifestyle modifications. (6) TAHIR (obstructive sleep apnea): Code(s): G47.33 - Obstructive sleep apnea (adult) (pediatric) Plan: Patient does use CPAP on a nightly basis with good effect. His health is benefitting from nightly use of his CPAP. Does need new CPAP machine Orders: Orders Lipid Panel 3 Months E78.1 - Pure hyperglyceridemia Comprehensive [place]. Panel Fast 3 Months I10 - Essential (primary) hypertension TDaP Immunization Today I10 - Essential (primary) hypertension, Z23 - Encounter for immunization TSH reflex Free T4 3 Months E03.9 - Hypothyroidism, unspecified Complete Blood Count no Diff 3 Months I10 - Essential (primary) hypertension Medications: Changed From CPAP (CPAP Machine/Device) Lifetime use, needs new CPAP machine- 9 cm H2O with nasal mask 1 ea 0RF G47.33 - Obstructive sleep apnea (adult) (pediatric) To CPAP (CPAP Machine/Device) Lifetime use, needs new CPAP machine- 9 cm H2O with nasal mask and heated humidifier 1 ea 0RF G47.33 - Obstructive sleep apnea (adult) (pediatric) From CPAP (CPAP Machine/Device) As directed 1 ea 0RF G47.33 - Obstructive sleep apnea (adult) (pediatric) To CPAP (CPAP Machine/Device) Lifetime use, needs new CPAP machine- 9 cm H2O with nasal mask 1 ea 0RF G47.33 - Obstructive sleep apnea (adult) (pediatric) Patient Instructions: Goal: A1c to be below 7.0, blood pressure to be below 140/90 Barriers: Adherence to physical activity and healthy eating habits Coding Level of Care Code Est Pt Prev Care 40-64y(57367) Diagnoses Annual physical exam Z00.00 Type 2 diabetes mellitus with hyperglycemia, without long-term current use of insulin E11.65 Diabetes mellitus complication status: with hyperglycemia Diabetes mellitus skilled nursing insulin use: without intermodal customer service use Primary hypertension I10 Hypertension type: primary hypertension Hypothyroidism, unspecified type E03.9 Hypothyroidism type: unspecified Hypertriglyceridemia E78.1 TAHIR (obstructive sleep apnea) G47.33
== END 2024-04-22 16:27 | disposition home or self-care (01) ==
PROVIDERS: PCP Physician Assistant; Visit Provider Physician Assistant
DX: Z00.00 Encounter for general adult medical examination without abnormal findings (principal); E11.65 Type 2 diabetes mellitus with hyperglycemia; I10 Essential (primary) hypertension; Z23 Encounter for immunization; E03.9 Hypothyroidism, unspecified; E78.1 Pure hyperglyceridemia; G47.33 Obstructive sleep apnea (adult) (pediatric)
CPT/HCPCS: 90471; 90715; 99396

== ENCOUNTER 2025-01-27 07:53 | Outpatient (REF) | payer BC, SELFPAY ==
[2025-01-27 10:51] LABS: Hematocrit 42.4 % (42.0-52.0); Hemoglobin 14.8 g/dl (14.0-18.0); Mean Corpuscular HGB Conc 34.9 g/dl (31.0-36.0); Mean Corpuscular Hemoglobin 30.3 pg (27.0-33.0); Mean Corpuscular Volume 86.7 fL (80.0-98.0); Mean Platelet Volume 10.3 fL (9.4-12.4); Platelet Count 222 X10*3/uL (160-400); Red Blood Count 4.89 X10*6/uL (4.60-5.80); Red Cell Distribution Width 11.9 % (11.0-16.0); White Blood Count 6.6 X10*3/uL (4.8-10.8)
[2025-01-27 11:13] LABS: Creatinine Urine 148.18 mg/dL; Microalbum/Creatinine Ratio Ur 27.6 ug/mg cr (<30)
[2025-01-27 11:25] LABS: Alanine Aminotransferase 81 U/L (0-40); Albumin Level 4.2 g/dL (3.5-5.0); Alkaline Phosphatase 75 U/L (39-117); Anion Gap 11 (12-20); Aspartate Amino Transferase 44 U/L (5-37); Bilirubin Total 0.7 mg/dL (0.0-1.0); Blood Urea Nitrogen 17 mg/dL (9-16); Calcium 9.1 mg/dL (8.4-10.2); Carbon Dioxide 27 mmol/L (22-29); Chloride 104 mmol/L (96-108); Cholesterol 168 mg/dL (<200); Estimated Glomerular Filt Rate > 60; Glucose Fasting 239 mg/dL (60-99); HDL Cholesterol 31 mg/dL (>40); LDL Cholesterol Calculated 91 mg/dL (<100); Potassium 4.3 mmol/L (3.3-5.1); Sodium 138 mmol/L (135-145); TSH reflex Free T4 3.56 uIU/mL (0.32-4.0); Total Protein 7.3 g/dL (6.5-8.0); Triglycerides 232 mg/dL (<150)
== END 2025-01-27 07:54 | disposition home or self-care (01) ==
LOC: HO.10HDL 07:53
PROVIDERS: Visit Provider Physician Assistant
DX: I10 Essential (primary) hypertension (principal); E78.1 Pure hyperglyceridemia; E03.9 Hypothyroidism, unspecified
CPT/HCPCS: 36415; 80053; 80061; 82043; 82570; 84443; 85027

== ENCOUNTER 2025-02-18 10:21 | Day surgery (SDC) | payer BC, SELFPAY ==
[2025-02-16 14:38] VITALS: BMI 34.8
--- NOTE | 2025-02-17 09:43 | P.CONAN_ITS ---
Documented by User: Genesis Beltre NP 02/17/25 09:44 HPI - Anesthesia Eval Consult details Narrative: 49yo M for Colonoscopy PMFSH Active Problems Active Problems: All Active Problems Hypothyroid (Acute) Hypertriglyceridemia (Acute) Tubular adenoma of colon (Acute) Annual physical exam (Acute) DMII (diabetes mellitus, type 2) (Acute) Anxiety about health (Acute) Encounter for vasectomy assessment (Acute) Obese (Acute) Elevated TSH (Acute) TAHIR (obstructive sleep apnea) (Acute) HTN (hypertension) (Acute) Past Medical History Medical History Diabetes TAHIR (obstructive sleep apnea) Colon cancer screening HTN (hypertension) Family History Family History (Updated 04/22/24 @ 15:54 by Jerome Moraes PA-C) Mother HTN (hypertension) Father Liver cancer Family history of problems with anesthesia: No Surgical History Surgical History (Updated 02/18/25 @ 10:36 by Shelbi Davies RN) Hx of appendectomy Hx of colonoscopy History of Problems with Anesthesia: No Social History Social History (Updated 04/22/24 @ 15:54 by Jerome Moraes PA-C) Housing: House Alcohol intake: current Alcohol intake frequency: a few times a month Alcohol type: beer Patient Tobacco Use Status: Never used Tobacco e-Cigarette/Vaping Use: Never Used Second Hand Smoke Exposure: Yes Advance Directives: No Advance Directives Information Provided: Yes service: No Current occupational status: employed 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 Cognitive needs: No Hearing needs: No Vision needs: No Meds Allergies Allergy/AdvReac Type Severity Reaction Status Date / Time No Known Allergies Allergy Verified 02/18/25 10:36 Exam Height,Weight and Vital Signs: Height 5 ft 8 in Weight 103.873 kg Assessment and Plan Assessment Anesthesia Assessment: Chart Reviewed Final Anesthetic Review Family History of Problems with Anesthesia: No History of Problems with Anesthesia: No Documented by User: Brenda Thibodeaux MD 02/18/25 10:50 PMFSH Past Medical History Medical History Diabetes TAHIR (obstructive sleep apnea) Colon cancer screening HTN (hypertension) Family History Family History (Updated 04/22/24 @ 15:54 by Jerome Moraes PA-C) Mother HTN (hypertension) Father Liver cancer Surgical History Surgical History (Updated 02/18/25 @ 10:36 by Shelbi Davies RN) Hx of appendectomy Hx of colonoscopy Social History Social History (Updated 04/22/24 @ 15:54 by Jerome Moraes PA-C) Housing: House Alcohol intake: current Alcohol intake frequency: a few times a month Alcohol type: beer Patient Tobacco Use Status: Never used Tobacco e-Cigarette/Vaping Use: Never Used Second Hand Smoke Exposure: Yes Advance Directives: No Advance Directives Information Provided: Yes service: No Current occupational status: employed 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 Cognitive needs: No Hearing needs: No Vision needs: No Meds Allergies Allergy/AdvReac Type Severity Reaction Status Date / Time No Known Allergies Allergy Verified 02/18/25 10:36 Exam Airway Mallampati Class: II TM Dist: >3cm Neck ROM: Full Heart: rrr Lungs: cta Assessment and Plan Assessment Anesthesia Assessment: Anesthesia Plan Discussed Final Anesthetic Review NPO: Yes ASA Class: II Final Preanesthetic Review: No Changes in Pt Med Stat, Meds/Allgs Chart Reviewed and Consent Obtained/Reviewed Patient Risk: Low Procedure Risk: Low Anesthetic Plan Anesthetic Plan: MAC: Disposition: Standard PACU
[2025-02-18 10:46] VITALS: BP 129/82; PULSE 81; RESP 14; TEMP 36.8; O2SAT 96; BMI 32.8
[2025-02-18] MEDS: Lactated Ringers 1,000 ML 100 ML IVCONT (11:05)
--- NOTE | 2025-02-18 11:23 | MHC.SHP ---
Pre-Procedural Eval Section A - 24 Hr Update-Section A only Date of Service: 02/18/25 The patient is an INPATIENT: No The patient has been examined within 24 hours of the surgical procedure. The History & Physical has been completed within 30 days and I have reviewed it.: No Section B - Complete if H&P > 30 days Chief Complaint: Surveillance for colon polyps Relevant Family History (Specify if Yes): No Relevant Social History: None Present Medications: see Short Stay Collaborative assessment Medical History: Significant History (TAHIR (obstructive sleep apnea) HTN (hypertension)) History of Previous Operations: Relevant previous surgery/procedure and date(s) (History of colonoscopy) Allergies: Allergies Allergy/AdvReac Type Severity Reaction Status Date / Time No Known Allergies Allergy Verified 02/18/25 10:36 Review of Systems Sugical H&P ROS: Negative: Constitution, Cardiovascular, Respiratory and Gastrointestinal Exam Surgical H&P Exam: Normal: Heart, Normal: Lungs, Normal: Extremities and Normal: Abdomen Plan Diagnosis/Plan: Unchanged I have reviewed the history and physical and performed a pertinent physical examination on my patient. No changes have occurred unless specified. Time Spent With Patient Time: Total time managing care of this patient today ____ minutes.
[2025-02-18 11:26] LABS: Glucose, Whole Blood 178 mg/dL (60-115)
[2025-02-18 12:22] VITALS: BP 125/71; PULSE 80; RESP 16; TEMP 36.3; O2SAT 96
--- NOTE | 2025-02-18 12:23 | P.CONAN_ITS ---
[facility] Active Problems Active Problems: All Active Problems Hypothyroid (Acute) Hypertriglyceridemia (Acute) Tubular adenoma of colon (Acute) Annual physical exam (Acute) DMII (diabetes mellitus, type 2) (Acute) Anxiety about health (Acute) Encounter for vasectomy assessment (Acute) Obese (Acute) Elevated TSH (Acute) TAHIR (obstructive sleep apnea) (Acute) HTN (hypertension) (Acute) Past Medical History Medical History Diabetes TAHIR (obstructive sleep apnea) Colon cancer screening HTN (hypertension) Family History Family History (Updated 04/22/24 @ 15:54 by Jerome Moraes PA-C) Mother HTN (hypertension) Father Liver cancer Family history of problems with anesthesia: No Surgical History Surgical History (Updated 02/18/25 @ 10:36 by Shelbi Davies RN) Hx of appendectomy Hx of colonoscopy History of Problems with Anesthesia: No Social History Social History (Updated 04/22/24 @ 15:54 by Jerome Moraes PA-C) Housing: House Are you a primary healthcare representative to a significant other at home: No Do you presently have visiting nurse or other home services: No Alcohol intake: current Alcohol intake frequency: holidays/special occasions only Alcohol type: beer Patient Tobacco Use Status: Never used Tobacco e-Cigarette/Vaping Use: Never Used Second Hand Smoke Exposure: Yes Use of substances other than those prescribed or required for medical reasons: No Have you been hit, kicked, punched, or otherwise hurt by someone within the past year? 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 Cognitive needs: No Hearing needs: No Vision needs: No Meds Allergies Allergy/AdvReac Type Severity Reaction Status Date / Time No Known Allergies Allergy Verified 02/18/25 10:36 Active Medications: Current Medications Lactated Ringer's (Lr) 1,000 mls @ 100 mls/hr IVCONT .Q10H BASIL[place] Last Admin: 02/18/25 11:05 Dose: 100 mls/hr Naloxone HCl (Naloxone Hcl 0.4 Mg/Ml Vial) 0.04 mg IVPUSH Q5M PRN PRN Reason: Excessive sedation or RR < 8 Exam Height,Weight and Vital Signs: Height 5 ft 8 in Weight 98 kg Last Vital Signs Temp 98.2 F 02/18/25 10:46 Pulse 81 02/18/25 10:46 Resp 14 02/18/25 10:46 BP 129/82 02/18/25 10:46 Pulse Ox 96 02/18/25 10:46 O2 Del Method Room Air 02/18/25 10:46 Pertinent Lab Results Pertinent Lab Results: Laboratory Tests 02/18/25 11:01 POC Glucose 178 H Airway Mallampati Class: II (mossing a couple) TM Dist: >3cm Neck ROM: Full Heart: rrr Lungs: cta Assessment and Plan Assessment Anesthesia Assessment: Anesthesia Plan Discussed and Chart Reviewed Final Anesthetic Review Family History of Problems with Anesthesia: No History of Problems with Anesthesia: No NPO: Yes ASA Class: II Final Preanesthetic Review: No Changes in Pt Med Stat, Meds/Allgs Chart Reviewed and Consent Obtained/Reviewed Patient Risk: Low Procedure Risk: Intermediate Anesthetic Plan Anesthetic Plan: MAC: Disposition: Standard PACU
--- NOTE | 2025-02-18 12:24 | P.OPN-COLO_ITS ---
Colonoscopy Operative Note Operative Note Date of Service: 02/18/25 Narrative: COLONOSCOPY TILL CECUM WITH SNARE POLYPECTOMY Pre-op diagnosis: Surveillance for colon polyps. Post-op diagnosis:? Colon polyps, Diverticulosis, hemorrhoids Endoscopist:? Cheryl Orta MD Anesthesia:?MAC Consent: Indications for the procedure and potential complications of bleeding, perforation, reaction to medications and missed diagnosis were discussed with the patient and informed consent was obtained. Instrument: Olympus CF H 190 L variable stiffness adult colonoscope Monitoring: Vital signs and clinical assessment, intermittent blood pressure monitoring, continuous EKG monitoring, Pulse oximetry and Carbon Dioxide monitoring were done throughout the procedure. Please see anesthesia flowsheet. Colon withdrawl time was 30 minutes. Procedure: The patient was placed in the left lateral decubitis position and pre-procedure medications were administered. After a digital rectal examination of the ano-rectum, the video colonoscope was inserted into the rectum and advanced through the colon to the cecum. The colonoscope was slowly withdrawn in a retrograde panoramic fashion and the colon mucosa was carefully examined including a retroflexed view of the rectum. Findings and interventions are described below. Procedure Difficulty: without difficulty Findings: Terminal Ileum: Not evaluated Cecum: Normal Ascending Colon: Normal Transverse Colon: A 7-8 mm sessile polyp - removed with a hot snare and polyp was not retrieved Descending Colon: Moderate diverticulosis Sigmoid Colon: Two 8 to 10 mm sessile polyps - removed with a hot snare. Moderate diverticulosis Rectum: A 10 mm sessile polyp - removed with a hot snare Ano-rectum: Moderate internal hemorrhoids Colon preparation: Good after copious irrigation. [place] Bowel Preparation Scale Right colon; 2 Transverse colon: 2 Left colon; 2 (0 = Unprepared colon segment with mucosa not seen due to solid stool that cannot be cleared. 1 = Portion of mucosa of the colon segment seen, but other areas of the colon segment not well seen due to staining, residual stool and/or opaque liquid. 2 = Minor amount of residual staining, small fragments of stool and/or opaque liquid, but mucosa of colon segment seen well. 3 = Entire mucosa of colon segment seen well with no residual staining, small fragments of stool or opaque liquid) Impression and Post Procedure Diagnosis: Colonoscopy Findings: Four small to medium sized polyps were removed Moderate diverticulosis seen in the left colon Moderate hemorrhoids on retroflexed exam. Plan: I will send a letter with polyp biopsy results Repeat Colonoscopy in 3 years if polyps are adenomatous and due to a history of multiple adenomatous colon polyps Above findings were reviewed with the patient and relevant handouts were given and the discharge area.
[2025-02-18 12:37] VITALS: BP 120/75; PULSE 69; RESP 16; TEMP 36.5; O2SAT 96
== END 2025-02-18 13:07 | disposition home or self-care (01) ==
PROVIDERS: PCP Physician Assistant; Visit Provider Internal Medicine Gastroenterology
PROC: 0DJD8ZZ Inspection of Lower Intestinal Tract, Via Natural or Artificial Opening Endoscopic (ICD-10-PCS; CPT 45378; principal; 2025-02-18 14:20)
DX: Z12.11 Encounter for screening for malignant neoplasm of colon (principal); Z86.0101 Personal history of adenomatous and serrated colon polyps; D12.5 Benign neoplasm of sigmoid colon; D12.8 Benign neoplasm of rectum; K63.5 Polyp of colon; K57.30 Diverticulosis of large intestine without perforation or abscess without bleeding; K64.8 Other hemorrhoids; I10 Essential (primary) hypertension; E11.9 Type 2 diabetes mellitus without complications; G47.33 Obstructive sleep apnea (adult) (pediatric)
CPT/HCPCS: 45385; 82947; 88305; J2003; J2250; J2704

== ENCOUNTER → 2025-02-18 10:21 | Outpatient (BNV) | payer BC, SELFPAY | PROVIDERS: PCP Physician Assistant; Visit Provider Internal Medicine Gastroenterology | DX: Z12.11 Encounter for screening for malignant neoplasm of colon (principal); Z86.0100 Personal history of colon polyps, unspecified; D12.5 Benign neoplasm of sigmoid colon; K57.30 Diverticulosis of large intestine without perforation or abscess without bleeding | CPT/HCPCS: 45385 ==

== ENCOUNTER 2025-04-13 14:39 | Outpatient (AMB) | payer BC, SELFPAY ==
--- NOTE | 2025-04-13 14:48 | AM.OFFVISNUR ---
Intake Visit Reasons: TB PPD Allergies No Known Allergies Allergy (Verified 02/18/25 10:36) Office Meds tuberculin PPD 5 tub. unit/0.1 mL intradermal injection solution Performing Provider: Jerome Moraes PA-C Performing Location: [facility] [place] [facility] Administered by: Florinda Jackson RN on 04/13/25 14:49 Dose Route Admin Location Dispensed Lot Number Expiration Date [facility] Speed Belt Sander 0.1 mL intradermal 0.1 mL [id number] 10/23/27 19683-202-91 [employer] Assessment & Plan Assessment & Plan Orders: Orders AMB PPD Planted Today Z11.1 - Encounter for screening for respiratory tuberculosis Medications: New tuberculin PPD 0.1 mL intradermal ONCE 0.1 mL 0RF Z11.1 - Encounter for screening for respiratory tuberculosis Coding
== END 2025-04-13 15:03 | disposition home or self-care (01) ==
LOC: HO.HMCH 14:39
PROVIDERS: PCP Physician Assistant; Visit Provider Physician Assistant
DX: Z11.1 Encounter for screening for respiratory tuberculosis (principal)

== ENCOUNTER → 2025-04-13 14:39 | Outpatient (BNVA) | payer BC, SELFPAY | PROVIDERS: PCP Physician Assistant; Visit Provider Physician Assistant | DX: Z11.1 Encounter for screening for respiratory tuberculosis (principal) | CPT/HCPCS: 86580 ==

== ENCOUNTER → 2025-04-15 14:48 | Outpatient (BNVA) | payer BC, SELFPAY | PROVIDERS: PCP Physician Assistant; Visit Provider Physician Assistant ==

== ENCOUNTER 2025-04-21 14:28 | Outpatient (REF) | payer BC, SELFPAY ==
[2025-04-21 15:05] LABS: Hematocrit 40.3 % (42.0-52.0); Hemoglobin 14.4 g/dl (14.0-18.0); Mean Corpuscular HGB Conc 35.7 g/dl (31.0-36.0); Mean Corpuscular Hemoglobin 30.9 pg (27.0-33.0); Mean Corpuscular Volume 86.5 fL (80.0-98.0); Mean Platelet Volume 9.8 fL (9.4-12.4); Platelet Count 215 X10*3/uL (160-400); Red Blood Count 4.66 X10*6/uL (4.60-5.80); Red Cell Distribution Width 12.2 % (11.0-16.0); White Blood Count 7.8 X10*3/uL (4.8-10.8)
[2025-04-21 15:11] LABS: Estimated Average Glucose 146 mg/dL; Hemoglobin A1c % 6.7 % (<6.0)
[2025-04-21 15:35] LABS: Alanine Aminotransferase 55 U/L (0-40); Albumin Level 4.5 g/dL (3.5-5.0); Anion Gap 12 (12-20); Aspartate Amino Transferase 36 U/L (5-37); Bilirubin Total 0.4 mg/dL (0.0-1.0); Blood Urea Nitrogen 19 mg/dL (9-16); Calcium 9.6 mg/dL (8.4-10.2); Carbon Dioxide 29 mmol/L (22-29); Chloride 101 mmol/L (96-108); Cholesterol 169 mg/dL (<200); Estimated Glomerular Filt Rate > 60; Glucose Fasting 132 mg/dL (60-99); HDL Cholesterol 37 mg/dL (>40); LDL Cholesterol Calculated 66 mg/dL (<100); Potassium 3.9 mmol/L (3.3-5.1); Sodium 138 mmol/L (135-145); Total Protein 7.1 g/dL (6.5-8.0); Triglycerides 330 mg/dL (<150)
[2025-04-21 15:56] LABS: TSH reflex Free T4 3.05 uIU/mL (0.32-4.0)
[2025-04-21 17:00] LABS: Alkaline Phosphatase 70 U/L (39-117)
[2025-04-22 06:48] LABS: Varicella IgG Antibody 7.47 S/CO
[2025-04-22 06:53] LABS: Rubella IgG Antibody <0.90 Index
[2025-04-24 19:09] LABS: TS Negative Control Passed; TS Panel A 0; TS Panel B 0; TS Positive Control Passed; TSpotTB Negative (Negative)
== END 2025-04-21 14:29 | disposition home or self-care (01) ==
LOC: HO.LAB 14:28
PROVIDERS: Visit Provider Physician Assistant
DX: I10 Essential (primary) hypertension (principal); E03.9 Hypothyroidism, unspecified; E11.65 Type 2 diabetes mellitus with hyperglycemia; Z23 Encounter for immunization; Z11.1 Encounter for screening for respiratory tuberculosis; E78.1 Pure hyperglyceridemia
CPT/HCPCS: 36415; 80053; 80061; 83036; 84443; 85027; 86481; 86735; 86762; 86765; 86787

== ENCOUNTER 2025-05-04 14:22 | Outpatient (AMB) | payer BC, SELFPAY ==
[2025-05-04 14:27] VITALS: BP 144/72; PULSE 91; TEMP 36.2; O2SAT 97; BMI 33.1
--- NOTE | 2025-05-04 14:27 | MHC.PC.OV ---
Vital Signs 05/04/25 14:27 Height 5 ft 8 in Weight 218 lb BMI 33.1 BP 144/72 H Blood Pressure Location Lt brachial Position Sitting Pulse 91 Pulse Source Pulse Oximeter Temp 97.1 F Temp Source Temporal Artery Scan Pulse Oximetry (%) 97 Oxygen Delivery Method Room Air Intake Visit Reasons: annual exam/pap therapy Acetylene Gas Compressor Required: No Accompanied by: Self / Same As Patient Allergies No Known Allergies Allergy (Verified 05/04/25 14:30) Medication List - Last Reconciled 05/04/25 by Jerome Moraes PA-C amlodipine 10 mg PO DAILY 90 days blood pressure test kit-large As directed CPAP (CPAP Machine/Device) Lifetime use, needs new CPAP machine- 9 cm H2O with nasal mask and heated humidifier levothyroxine 25 mcg PO DAILY 30 days lisinopril-hydrochlorothiazide 20-12.5 mg 1 tab PO DAILY 90 days metformin 500 mg PO BID 90 days Tobacco use date assessed: 05/04/25 Dental Screening Dental Screen Date: 05/04/25 Did you have a dental visit in the last 12 months?: Yes Did you have a dental problem in the last 6 months where you did not have access to dental care?: No Was dental information given to patient?: Patient has dentist HPI annual exam/pap therapy HPI Details patient is a 49-year-old male here today for a routine annual physical. Pmhx HTN, TAHIR, Obese, type 2 diabetes . HTN:? Blood pressure acceptable today in office. Continues on amlodipine and lisinopril with decent affect. He denies any chest discomfort, dizziness headaches or blurred vision. .. Type 2 diabetes: Most recent labs showing much improved fasting blood sugar. Most recent A1c appropriate 6.7. He has been making dietary and lifestyle modifications. Continues on metformin 500 b.i.d.. .. Hypothyroid: Recently started levothyroxine 25 mcg. TSH has normalized. Also his fasting cholesterol panel namely his triglycerides have drastically reduced. .. Hyperlipidemia: Most recent lipid panel showing much improved triglycerides and appropriate total cholesterol and LDL. He will work extensively on diet and lifestyle modifications and if triglycerides remain above 500 will consider both cholesterol and anti hyperglycemic medication. TAHIR : Continues to use CPAP machine on a nightly basis with good effect on sleep. VAccine: UTD With COVID vaccine, Declines Flu, UTD Tdap and PCV- 20 .. colonoscopy: Colonoscopy done in early 2024, 3 polyps were found that were tubular adenoma. Needed repeat 3 year Laboratory Tests 12/19/22 02/05/24 02/05/24 08:10 07:42 07:45 RBC 4.73 Fasting Glucose 297 H Hgb A1c (Clinic) Hemoglobin A1c % 7.2 AST 69 H ALT 114 H Triglycerides 178 508 H LDL Cholesterol, C alc TSH 5.32 H 4.18 H Urine Microalbumin 97.0 02/10/24 04/14/24 01/27/25 13:36 07:56 07:55 RBC Fasting Glucose 181 H 239 H Hgb A1c (Clinic) 9.9 H Hemoglobin A1c % AST 32 ALT 47 H Triglycerides 252 H LDL Cholesterol, C alc 91 TSH 3.62 Urine Microalbumin 41.0 04/21/25 14:43 RBC Fasting Glucose 132 H Hgb A1c (Clinic) Hemoglobin A1c % 6.7 H AST ALT Triglycerides 330 H LDL Cholesterol, C alc 66 TSH Urine Microalbumin PFSH Medical History Diabetes TAHIR (obstructive sleep apnea) Colon cancer screening HTN (hypertension) Surgical History Hx of appendectomy Hx of colonoscopy Family History (Updated 05/04/25 @ 14:34 by Jerome Moraes PA-C) Mother HTN (hypertension) Father Liver cancer Social History (Updated 05/04/25 @ 14:34 by Jerome Moraes PA-C) Housing: House Are you a primary foster care worker to a significant other at home: No Do you presently have visiting nurse or other home services: No Alcohol intake: current Alcohol intake frequency: a few times a week Alcohol type: beer Patient Tobacco Use Status: Never used Tobacco e-Cigarette/Vaping Use: Never Used Second Hand Smoke Exposure: Yes service: No Current occupational status: employed 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 1. Little interest or pleasure in doing things: not at all 2. Feeling down, depressed, or hopeless: not at all 3. Trouble falling or staying asleep, or sleeping too much: not at all 4. Feeling tired or having little energy: not at all 5. Poor appetite or overeating: not at all 6. Feeling bad about yourself - or that you are a failure or have let yourself or your family down: not at all 7. Trouble concentrating on things, such as reading the newspaper or watching television: not at all 8. Moving or speaking so slowly that other people could have noticed. Or the opposite - being so fidgety or restless that you have been moving around a lot more than usual: not at all 9. Thoughts that you would be better off or of hurting yourself in some way: not at all Total score: 0 Depression Screening Interpretation: Negative Depression Screening Done: Yes 94256 - PHQ-9 Billing: Yes Source: Developed by Drs. Lester Guzman, Nae Martinez, Aj Be and colleagues, with an educational coleen from [employer]. Thrive Questionnaire Date Thrive assessed: 05/04/25 I am a: Patient What is your living situation today?: I have a steady place to live Within the past 12 months, did the food you bought not last and you didn't have the money to get more?: Never true Within the past 12 months, did you worry whether your food would run out before you got money to buy more?: Never true Do you have trouble paying for medicines?: No Do you have trouble getting transportation to medical appointments?: No Do you have trouble paying your heating and electricity bill?: No Do you have trouble taking care of your child, family member or friend?: No Do you have trouble with day-to-day activities such as bathing, preparing meals, shopping, managing finances, etc.?: No Are you currently unemployed and looking for a job?: No Are you interested in more education?: No Please select the resources that you would like help with: None Currently or been in a relationship where the following occur: No concerns reported THRIVE Score: 0 AUDIT C Alcohol Use Questionnaire (AUDIT-C) 1. How often do you have a drink containing alcohol?: 2-4 times a month 2. How many drinks containing alcohol do you have on a typical day when you are drinking?: 3 or 4 (Beer and sometimes Vodka) 3. How often do you have six or more drinks on one occasion?: Never Total Score: 3 LEIF-7 AMB Questionnaire LEIF-7 Date LEIF - 7 assessed: 05/04/25 Feeling nervous, anxious, or on edge: 0 = Not at all Not being able to stop or control worryin = Not at all Worrying too much about different things: 0 = Not at all Trouble relaxin = Not at all Being so restless that it is hard to sit still: 0 = Not at all Becoming easily annoyed or irritable: 0 = Not at all Feeling afraid as if something awful might happen: 0 = Not at all Total LEIF-7 score (0-4 normal; 5-9 mild; 10-14 moderate; 15-21 severe): 0 Source: Developed by Drs. Lester Guzman, Nae Martinez, Aj Be and colleagues, with an educational coleen from [employer]. LEIF-7 Assessment Billing LEIF-7 Assessment Tool: LEIF-7 Assessment 24875 Review of Systems Const Denies body aches, Denies chills, Denies excessive sweating, Denies fatigue, Denies fever(s) and Denies headache(s) Eyes Denies blurry vision ENT Denies dysphagia, Denies vertigo, Denies dizziness, Denies headache(s), Denies hearing loss and Denies tinnitus Card Denies chest pain, Denies chest pain with activity, Denies syncope, Denies irregular heart rhythm and Denies dyspnea Resp Denies chest congestion, Denies cough, Denies hemoptysis, Denies dyspnea and Denies wheezing GI Denies abdominal pain, Denies melena, Denies hematochezia, Denies coffee ground emesis, Denies dysphagia, Denies diarrhea, Denies nausea and Denies vomiting Denies difficulty urinating, Denies dysuria, Denies urinary frequency, Denies urinary hesitancy and Denies urinary urgency Musc Denies arthralgias, Denies limited range of motion, Denies muscle cramps and Denies muscle weakness Skin/Breast Denies rash and Denies skin ulcer Neuro Denies Abnormal speech present, Denies confusion, Denies vertigo, Denies dizziness, Denies syncope, Denies headache(s), Denies memory loss and Denies seizure-like activity Psych Denies anxiety, Denies confusion, Denies depression, Denies memory loss, Denies panic attacks and Denies paranoia Endo Denies excessive sweating, Denies fatigue, Denies flushing, Denies polydipsia and Denies polyuria Aller/Immun Denies wheezing Physical exam (Primary Care) Vital Signs: Last Vital Signs Temp 97.1 F 05/04/25 14:27 Pulse 91 05/04/25 14:27 BP 144/72 H 05/04/25 14:27 Pulse Ox 97 05/04/25 14:27 Oxygen Delivery Method Room Air 05/04/25 14:27 BMI result Body Mass Index 33.1 Tobacco/Smoking Status: Tobacco use Status Tobacco use date assessed 05/04/25 05/04/25 14:29 Patient Tobacco Use Status Never used Tobacco 05/04/25 14:34 e-Cigarette/Vaping Use Never Used 05/04/25 14:34 PHQ-9: PHQ-9 Score PHQ-9: Total score 0 05/04/25 14:32 Depression Screening Interpretation: Negative Thrive Assessment: Date of Thrive Assessment Date Thrive assessed 05/04/25 05/04/25 14:29 Currently or been in a relationship where the following occur: No concerns reported Const General: cooperative, comfortable, no acute distress, alert and awake; No confusion Orientation/consciousness: oriented to person, oriented to place, patient oriented x3 and No confusion HENMT Head: Yes normocephalic Ears: external ears normal and TM's normal bilaterally Face and sinus: No sinus tenderness Mouth: Normal oral and palatal mucosa present and tongue normal Teeth and gingiva: dentition normal and gingiva normal Throat: Yes posterior oropharynx normal, Yes tonsils normal and Yes uvula midline Eyes Conjunctivae: conjunctivae normal Sclerae: sclerae normal Pupils: Equal, round and reactive pupils present EOM: EOMs intact bilaterally Direct Ophthalmoscopy: No no photophobia Neck Neck: Yes no lymphadenopathy, No tender and Yes no JVD Thyroid: Thyroid normal Carotids: no bruits Chest Chest palpation & inspection: no tenderness Resp Effort & Inspection: normal respiratory effort, no audible wheezes, not labored and no stridor Auscultation: no crackles, no rales, no rhonchi and no wheezes Cardio Jugular venous distension: no JVD Rate: regular rate, not bradycardic and not tachycardic Rhythm: regular rhythm Bruits: no carotid bruits Peripheral pulses: Peripheral pulses 2+ throughout GI Inspection: Yes normal to inspection, No abdominal wall ecchymosis and No visible herniation Palpation (GI): Soft to palpation, nontender, no guarding, not rigid and No hepatosplenomegaly present Auscultation: normoactive bowel sounds General: Yes no CVA tenderness Back/Spine/Pelvis Back: no CVA tenderness and No back tenderness Cervical Spine: cervical ROM normal Thoracic/Lumbar Spine: thoracic and lumbar spine normal to inspection, straight leg raise negative bilaterally, No thoraco-lumbar ROM limited and No lumbar spinal tenderness Skin Lesions: no lesions Rashes: no rashes Wounds: no wounds Neuro General: oriented to person, oriented to place, patient oriented x3, CN's II-XI intact bilaterally and No confusion Cranial nerves: Yes Equal, round and reactive pupils present and Yes Normal accommodation reflex present Cognition (Neuro): normal cognition Speech: No Abnormal speech present Gait exam (Neuro): Normal gait present Motor exam (neuro): 5/5 motor strength present throughout Extrem Right upper extremity: full ROM; no cyanosis Left upper extremity: full ROM; no cyanosis Right lower extremity: no edema Left lower extremity: no edema Psych Appearance: grossly normal Mental Status: mental status grossly normal Affect: normal affect Attitude: cooperative Thought process: Normal thought process present Coding Level of Care Code Est Pt Prev Care 40-64y(56877) Diagnoses Annual physical exam Z00.00 Type 2 diabetes mellitus with hyperglycemia, without long-term current use of insulin E11.65 Diabetes mellitus long winder tender insulin use: without shelter use Diabetes mellitus complication status: with hyperglycemia Hypothyroidism, unspecified type E03.9 Hypothyroidism type: unspecified Hypertriglyceridemia E78.1 Primary hypertension I10 Hypertension type: primary hypertension TAHIR (obstructive sleep apnea) G47.33 Class 1 obesity E66.811 Additional Codes LEIF-7 Assessment Billing - LEIF-7 Assessment Tool: LEIF-7 Assessment 33301 ([id number]) PHQ-9 - 33364 - PHQ-9 Billing: Yes ([id number]) Assessment & Plan Assessment & Plan (1) Annual physical exam: Code(s): Z00.00 - Encounter for general adult medical examination without abnormal findings Category: Medical Plan: As per HPI (2) DMII (diabetes mellitus, type 2): Code(s): E11.9 - Type 2 diabetes mellitus without complications Category: Medical Qualifiers: Diabetes mellitus long winder tender insulin use: without long winder tender use Diabetes mellitus complication status: with hyperglycemia Qualified Code(s): E11.65 - Type 2 diabetes mellitus with hyperglycemia Plan: Patient's type 2 diabetes well controlled with current dose of metformin. Patient has been making dietary and lifestyle modifications. Goal A1c is to remain below 7.0. (3) Hypothyroid: Code(s): E03.9 - Hypothyroidism, unspecified Category: Medical Qualifiers: Hypothyroidism type: unspecified Qualified Code(s): E03.9 - Hypothyroidism, unspecified Plan: Most recent TSH stable, continues on low-dose levothyroxine 25 mg on empty stomach in the morning. Will continue to follow TSH to assure normal. (4) Hypertriglyceridemia: Code(s): E78.1 - Pure hyperglyceridemia Category: Medical Plan: Most recent lipid panel showing improved triglycerides. He reports he was not fasting for most recent lipid panel. Will recheck before next office visit. He continues on lifestyle and dietary modifications at this time. Goal LDL is to be below 100 (5) HTN (hypertension): Code(s): I10 - Essential (primary) hypertension Category: Medical Qualifiers: Hypertension type: primary hypertension Qualified Code(s): I10 - Essential (primary) hypertension Plan: Patient's blood pressure acceptable today in office. Goal blood pressures to remain below 140/90 (6) TAHIR (obstructive sleep apnea): Code(s): G47.33 - Obstructive sleep apnea (adult) (pediatric) Category: Medical Plan: Patient continues with CPAP machine on a nightly basis with good effect. Recently received a new CPAP machine. (7) Class 1 obesity: Code(s): E66.811 - Obesity, class 1 Category: Medical Plan: Patient does understand his BMI is over 30 will work on lifestyle modifications and dietary modifications to reduce his weight. Orders: Orders TSH reflex Free T4 05/04/25 E03.9 - Hypothyroidism, unspecified Lipid Panel 05/04/25 E11.65 - Type 2 diabetes mellitus with hyperglycemia Comprehensive [place]. Panel Fast 05/04/25.65 - Type 2 diabetes mellitus with hyperglycemia Complete Blood Count no Diff 05/04/25.65 - Type 2 diabetes mellitus with hyperglycemia Hemoglobin A1c 05/04/25 E11.65 - Type 2 diabetes mellitus with hyperglycemia Medications: Changed From levothyroxine 25 mcg PO DAILY 30 days 30 tabs 1RF E03.9 - Hypothyroidism, unspecified To levothyroxine 25 mcg PO DAILY 90 tabs 1RF 90 days E03.9 - Hypothyroidism, unspecified Refilled amlodipine 10 mg PO DAILY 90 tabs 1RF 90 days I10 - Essential (primary) hypertension lisinopril-hydrochlorothiazide 20-12.5 mg 1 tab PO DAILY 90 tabs 1RF 90 days I10 - Essential (primary) hypertension
== END 2025-05-04 14:46 | disposition home or self-care (01) ==
LOC: HO.HMCH 14:23
PROVIDERS: PCP Physician Assistant; Visit Provider Physician Assistant
DX: Z00.00 Encounter for general adult medical examination without abnormal findings (principal); E11.65 Type 2 diabetes mellitus with hyperglycemia; E66.811 Obesity, class 1; Z68.33 Body mass index [BMI] 33.0-33.9, adult; E03.9 Hypothyroidism, unspecified; E78.1 Pure hyperglyceridemia; I10 Essential (primary) hypertension; G47.33 Obstructive sleep apnea (adult) (pediatric)

== ENCOUNTER → 2025-05-04 14:22 | Outpatient (BNVA) | payer BC, SELFPAY | PROVIDERS: PCP Physician Assistant; Visit Provider Physician Assistant | DX: Z00.00 Encounter for general adult medical examination without abnormal findings (principal); I10 Essential (primary) hypertension; G47.33 Obstructive sleep apnea (adult) (pediatric); E03.9 Hypothyroidism, unspecified; E78.5 Hyperlipidemia, unspecified; E11.65 Type 2 diabetes mellitus with hyperglycemia; E78.1 Pure hyperglyceridemia; E66.811 Obesity, class 1; Z68.33 Body mass index [BMI] 33.0-33.9, adult | CPT/HCPCS: 96127 ==

== ENCOUNTER 2025-10-28 10:33 | Outpatient (REF) | payer BC, SELFPAY ==
[2025-10-28 13:22] LABS: Hematocrit 40.9 % (42.0-52.0); Hemoglobin 14.3 g/dl (14.0-18.0); Mean Corpuscular HGB Conc 35.0 g/dl (31.0-36.0); Mean Corpuscular Hemoglobin 31.0 pg (27.0-33.0); Mean Corpuscular Volume 88.7 fL (80.0-98.0); NRBC Abs Auto 0.000 X10*3/uL (0.0-0.012); NRBC Pct Auto 0.0 /100WBC (0.0-0.2); Platelet Count 224 X10*3/uL (160-400); Red Blood Count 4.61 X10*6/uL (4.60-5.80); White Blood Count 7.1 X10*3/uL (4.8-10.8)
[2025-10-28 14:15] LABS: Alanine Aminotransferase 60 U/L (0-40); Albumin Level 4.5 g/dL (3.5-5.0); Alkaline Phosphatase 70 U/L (39-117); Anion Gap 10 (12-20); Aspartate Amino Transferase 36 U/L (5-37); Blood Urea Nitrogen 14 mg/dL (9-16); Calcium 9.1 mg/dL (8.4-10.2); Carbon Dioxide 29 mmol/L (22-29); Chloride 104 mmol/L (96-108); Cholesterol 141 mg/dL (<200); Estimated Glomerular Filt Rate > 60; HDL Cholesterol 34 mg/dL (>40); Potassium 4.4 mmol/L (3.3-5.1); Sodium 139 mmol/L (135-145); Total Protein 6.8 g/dL (6.5-8.0); Triglycerides 207 mg/dL (<150)
== END 2025-10-28 10:34 | disposition home or self-care (01) ==
LOC: HO.10HDL 10:33
PROVIDERS: Visit Provider Physician Assistant
DX: E11.65 Type 2 diabetes mellitus with hyperglycemia (principal); E03.9 Hypothyroidism, unspecified
CPT/HCPCS: 36415; 80053; 80061; 83036; 84443; 85027

== ENCOUNTER 2025-11-03 14:47 | Outpatient (AMB) | payer BC, SELFPAY ==
--- NOTE | 2025-11-03 14:57 | MHC.PC.OV ---
Vital Signs 11/03/25 14:58 Height 5 ft 8 in Weight 225 lb BMI 34.2 BP 120/70 Blood Pressure Location Lt brachial Position Sitting Pulse 91 Pulse Source Pulse Oximeter Temp 97.3 F Temp Source Temporal Artery Scan Pulse Oximetry (%) 97 Oxygen Delivery Method Room Air Intake Visit Reasons: f/u HTN/ DMII - see comments Intake Note: Patient is here to follow up on HTN, DM. Hris Administrator Required: No Director Of State: Not Required per policy Accompanied by: Self / Same As Patient Allergies No Known Allergies Allergy (Verified 11/03/25 15:04) Medication List - Last Reconciled 11/03/25 by Jerome Moraes PA-C amlodipine 10 mg PO DAILY 90 days blood pressure test kit-large As directed CPAP (CPAP Machine/Device) Lifetime use, needs new CPAP machine- 9 cm H2O with nasal mask and heated humidifier levothyroxine 25 mcg PO DAILY 90 days lisinopril-hydrochlorothiazide 20-12.5 mg 1 tab PO DAILY 90 days metformin 500 mg PO BID 90 days Tobacco use date assessed: 11/03/25 Dental Screening Dental Screen Date: 05/04/25 HPI f/u HTN/ DMII - see comments HPI Details patient is a 49-year-old male here today for a follow-up visit Pmhx HTN, TAHIR, Obese, type 2 diabetes . HTN:? Blood pressure acceptable today in office. Continues on amlodipine and lisinopril with decent affect. He denies any chest discomfort, dizziness headaches or blurred vision. .. Type 2 diabetes: Today's A1c is 7.0 from 6.7. He is now interested in trying a no sugar low carb diet. He has been making dietary and lifestyle modifications. Continues on metformin 500 b.i.d.. We did discuss perhaps trying a GLP 1 for glycemic control and weight reduction though he is still considering at this time .. Hypothyroid: Recently started levothyroxine 25 mcg. TSH has normalized. Also his fasting cholesterol panel namely his triglycerides have drastically reduced. .. Hyperlipidemia: Most recent lipid panel showing much improved triglycerides and appropriate total cholesterol and LDL. He will work extensively on diet and lifestyle modifications and if triglycerides remain above 500 will consider both cholesterol and anti hyperglycemic medication. TAHIR : Continues to use CPAP machine on a nightly basis with good effect on sleep Laboratory Tests 04/21/25 10/28/25 14:43 10:35 RBC 4.61 Creatinine 0.68 Fasting Glucose 132 H 176 H Hemoglobin A1c % 6.7 H 7.0 H Triglycerides 330 H 207 H LDL Cholesterol, C alc 66 TSH 2.61 PFSH Medical History Diabetes TAHIR (obstructive sleep apnea) Colon cancer screening HTN (hypertension) Surgical History Hx of appendectomy Hx of colonoscopy Family History Mother HTN (hypertension) Father Liver cancer Social History Housing: House Are you a primary health care technician to a significant other at home: No Do you presently have visiting nurse or other home services: No Alcohol intake: current Alcohol intake frequency: a few times a week Alcohol type: beer Patient Tobacco Use Status: Never used Tobacco e-Cigarette/Vaping Use: Never Used Second Hand Smoke Exposure: Yes service: No Current occupational status: employed 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 1. Little interest or pleasure in doing things: not at all 2. Feeling down, depressed, or hopeless: not at all 3. Trouble falling or staying asleep, or sleeping too much: not at all 4. Feeling tired or having little energy: not at all 5. Poor appetite or overeating: not at all 6. Feeling bad about yourself - or that you are a failure or have let yourself or your family down: not at all 7. Trouble concentrating on things, such as reading the newspaper or watching television: not at all 8. Moving or speaking so slowly that other people could have noticed. Or the opposite - being so fidgety or restless that you have been moving around a lot more than usual: not at all 9. Thoughts that you would be better off or of hurting yourself in some way: not at all Total score: 0 Depression Screening Interpretation: Negative Depression Screening Done: Yes 51908 - PHQ-9 Billing: Patient declined-do not bill Source: Developed by Drs. Lester Guzman, Nae Martinez, Aj Be and colleagues, with an educational coleen from [employer]. Thrive Questionnaire Date Thrive assessed: 04/27/25 I am a: Patient What is your living situation today?: I have a steady place to live Within the past 12 months, did the food you bought not last and you didn't have the money to get more?: Never true Within the past 12 months, did you worry whether your food would run out before you got money to buy more?: Never true Do you have trouble paying for medicines?: No Do you have trouble getting transportation to medical appointments?: No Do you have trouble paying your heating and electricity bill?: No Do you have trouble taking care of your child, family member or friend?: No Do you have trouble with day-to-day activities such as bathing, preparing meals, shopping, managing finances, etc.?: No Are you currently unemployed and looking for a job?: No Are you interested in more education?: No Please select the resources that you would like help with: None Currently or been in a relationship where the following occur: No concerns reported THRIVE Score: 0 LEIF-7 AMB Questionnaire LEIF-7 Date LEIF - 7 assessed: 05/04/25 Source: Developed by Drs. Lester Guzman, Nae Martinez, Aj Be and colleagues, with an educational coleen from [employer]. Review of Systems Const Denies headache(s) Eyes Denies loss of vision ENT Denies vertigo, Denies dizziness, Denies headache(s) and Denies sore throat Card Denies chest pain, Denies leg edema and Denies lightheadedness Resp Denies cough, Denies hemoptysis and Denies wheezing GI Denies abdominal pain, Denies melena, Denies constipation, Denies diarrhea and Denies vomiting Denies dysuria, Denies urinary frequency and Denies urinary urgency Musc Denies arthralgias, Denies joint swelling, Denies numbness and Denies tingling Neuro Denies Abnormal speech present, Denies behavioral changes, Denies vertigo, Denies dizziness, Denies headache(s), Denies loss of vision, Denies memory loss, Denies numbness and Denies tingling Psych Denies anxiety, Denies behavioral changes, Denies depression, Denies memory loss and Denies panic attacks Kris/Lymph Denies easy bleeding and Denies easy bruising Aller/Immun Denies wheezing Physical exam (Primary Care) Vital Signs: Last Vital Signs Temp 97.3 F 11/03/25 14:58 Pulse 91 11/03/25 14:58 BP 120/70 11/03/25 14:58 Pulse Ox 97 11/03/25 14:58 Oxygen Delivery Method Room Air 11/03/25 14:58 BMI result Body Mass Index 34.2 BMI Assessment/Plan discussion: High BMI High, discussed plan: lifestyle, weight reduction, dietary and physical activity Tobacco/Smoking Status: Tobacco use Status Tobacco use date assessed 11/03/25 11/03/25 15:01 Patient Tobacco Use Status Never used Tobacco 11/03/25 14:58 e-Cigarette/Vaping Use Never Used 11/03/25 14:58 PHQ-9: PHQ-9 Score PHQ-9: Total score 0 11/03/25 14:58 Depression Screening Interpretation: Negative Thrive Assessment: Date of Thrive Assessment Date Thrive assessed 04/27/25 11/03/25 14:58 Currently or been in a relationship where the following occur: No concerns reported Const General: healthy appearing, no acute distress, alert and awake Nutritional Appearance: well nourished Orientation/consciousness: oriented to person, oriented to place and oriented to time HENMT Ears: TM's normal bilaterally General nose exam: Normal nasal mucous membranes and turbinates present Eyes Conjunctivae: conjunctivae normal Sclerae: sclerae normal Pupils: Equal, round and reactive pupils present Neck Neck: Yes no lymphadenopathy and Yes no JVD Thyroid: Thyroid normal Carotids: no bruits Resp Effort & Inspection: normal respiratory effort and not tachypneic Auscultation: no crackles, no rales, no rhonchi and no wheezes Cardio Rate: regular rate Rhythm: regular rhythm Heart sounds: no murmurs and normal S1 and S2 GI Palpation (GI): Soft to palpation, nontender, no hepatomegaly and no splenomegaly Auscultation: normal bowel sounds Skin General skin exam: no rashes or lesions noted and dry skin Neuro General: oriented to person, oriented to place and oriented to time Cranial nerves: Yes Equal, round and reactive pupils present Speech: No Abnormal speech present Gait exam (Neuro): Normal gait present Motor exam (neuro): no tremor noted Extrem Right upper extremity: full ROM Left upper extremity: full ROM Right lower extremity: full ROM; no edema Left lower extremity: full ROM; no edema Psych Mental Status: mental status grossly normal Speech and movement: Normal speech and movement present Affect: normal affect Attitude: cooperative Thought process: Normal thought process present Coding Level of Care Code Est Pt Level 4 (24671) Diagnoses Type 2 diabetes mellitus with hyperglycemia, without long-term current use of insulin E11.65 Diabetes mellitus detention insulin use: without detention use Diabetes mellitus complication status: with hyperglycemia Hypothyroidism, unspecified type E03.9 Hypothyroidism type: unspecified Hypertriglyceridemia E78.1 Primary hypertension I10 Hypertension type: primary hypertension TAHIR (obstructive sleep apnea) G47.33 Class 1 obesity E66.811 Assessment & Plan Assessment & Plan (1) DMII (diabetes mellitus, type 2): Code(s): E11.9 - Type 2 diabetes mellitus without complications Category: Medical Qualifiers: Diabetes mellitus detention insulin use: without carbon cutter use Diabetes mellitus complication status: with hyperglycemia Qualified Code(s): E11.65 - Type 2 diabetes mellitus with hyperglycemia Plan: Patient's type 2 diabetes well controlled with current dose of metformin. Most recent A1c is 7.0. We did discuss perhaps looking into a GLP 1 to help with glycemic control and weight reduction Patient has been making dietary and lifestyle modifications. Goal A1c is to remain below 7.0. (2) Hypothyroid: Code(s): E03.9 - Hypothyroidism, unspecified Category: Medical Qualifiers: Hypothyroidism type: unspecified Qualified Code(s): E03.9 - Hypothyroidism, unspecified Plan: Most recent TSH stable, continues on low-dose levothyroxine 25 mg on empty stomach in the morning. Will continue to follow TSH to assure normal. (3) Hypertriglyceridemia: Code(s): E78.1 - Pure hyperglyceridemia Category: Medical Plan: Most recent lipid panel showing improved triglycerides. He reports he was not fasting for most recent lipid panel. Will recheck before next office visit. He continues on lifestyle and dietary modifications at this time. Goal LDL is to be below 100 (4) HTN (hypertension): Code(s): I10 - Essential (primary) hypertension Category: Medical Qualifiers: Hypertension type: primary hypertension Qualified Code(s): I10 - Essential (primary) hypertension Plan: Patient's blood pressure acceptable today in office. Goal blood pressures to remain below 140/90 (5) TAHIR (obstructive sleep apnea): Code(s): G47.33 - Obstructive sleep apnea (adult) (pediatric) Category: Medical Plan: Patient continues with CPAP machine on a nightly basis with good effect. Recently received a new CPAP machine. (6) Class 1 obesity: Code(s): E66.811 - Obesity, class 1 Category: Medical Plan: Unfortunately gained a few lb since last office visit. He reports he is going to start to implement a no sugar low-carbohydrate diet. Patient does understand his BMI is over 30 will work on lifestyle modifications and dietary modifications to reduce his weight. Orders: Orders Hemoglobin A1c Today E11.65 - Type 2 diabetes mellitus with hyperglycemia [facility] [place]. Panel Fast Today E11.65 - Type 2 diabetes mellitus with hyperglycemia Microalbumin, Random (w Creat) Today I10 - Essential (primary) hypertension Lipid Panel Today E11.65 - Type 2 diabetes mellitus with hyperglycemia Complete Blood Count no Diff Today E11.65 - Type 2 diabetes mellitus with hyperglycemia TSH reflex Free T4 Today E03.9 - Hypothyroidism, unspecified Medications: Refilled lisinopril-hydrochlorothiazide 20-12.5 mg 1 tab PO DAILY 90 tabs 1RF 90 days I10 - Essential (primary) hypertension amlodipine 10 mg PO DAILY 90 tabs 1RF 90 days I10 - Essential (primary) hypertension
[2025-11-03 14:58] VITALS: BP 120/70; PULSE 91; TEMP 36.3; O2SAT 97; BMI 34.2
== END 2025-11-03 15:20 | disposition home or self-care (01) ==
LOC: HO.HMCH 14:47
PROVIDERS: PCP Physician Assistant; Visit Provider Physician Assistant
DX: E11.65 Type 2 diabetes mellitus with hyperglycemia (principal); E03.9 Hypothyroidism, unspecified; E66.811 Obesity, class 1; Z68.34 Body mass index [BMI] 34.0-34.9, adult; E78.1 Pure hyperglyceridemia; I10 Essential (primary) hypertension; G47.33 Obstructive sleep apnea (adult) (pediatric)

== ENCOUNTER 2025-11-10 10:14 | Emergency (ER) | payer OTHER, SELFPAY ==
[2025-11-10 10:42] VITALS: BP 103/50; PULSE 87; RESP 16; TEMP 36.6; O2SAT 95; BMI 33.1
--- NOTE | 2025-11-10 10:43 | ED_ITS ---
HPI - Eye Problem General Chief complaint: Eye Problems Stated complaint: eye scratched- work inj Time Seen by Provider: 11/10/25 11:28 Source: patient and RN notes reviewed Mode of arrival: ambulatory Limitations: no limitations History of Present Illness ED Provider: Natty Crane PA-C HPI Narrative: This is a 49-year-old male who presents emergency department with concerns of right eye irritation. 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 No trouble seeing, states a burning sensation in his right eye. He has not a contact lens wear. He does wear glasses. No other complaints or concerns at this time. MD chief complaint: eye pain and eye injury Eye Symptoms: burning Mechanism: direct trauma Associated symptoms: none Treatments Prior to Arrival: none Related Data Previous Rx's ?Medication ?Instructions ?Recorded blood pressure test kit-large #1 ea 09/12/21 CPAP (CPAP Machine/Device) #1 ea 04/22/24 metformin 500 mg tablet 500 mg PO BID 90 days #180 t abs 07/12/25 amlodipine 10 mg tablet 10 mg PO DAILY 90 days #90 t abs 11/03/25 lisinopril 20 1 tab PO DAILY 90 days #90 t abs 11/03/25 mg-hydrochlorothiazide 12.5 mg tablet erythromycin 5 mg/gram (0.5 %) eye 0.5 inch ophthalmic (eye) QID 7 11/10/25 ointment days #3.5 grams levothyroxine 25 mcg tablet 25 mcg PO DAILY 90 days #9 0 tabs 11/10/25 Allergies Allergy/AdvReac Type Severity Reaction Status Date / Time No Known Allergies Allergy Verified 11/10/25 10:45 Review of Systems Review of Systems: Constitutional : No Fever, No Chills ENT/Mouth : No sore throat, No Rhinorrhea Eyes: +Eye Pain, No Swelling, No Redness Cardiovascular : No Chest Pain, No SOB Respiratory : No Cough, No Sputum Gastrointestinal : No Nausea, No Vomiting, No Diarrhea, No abdominal Pain Genitourinary : No Dysuria, No Hematuria Musculoskeletal : No joint pain, No Myalgias, No Joint Swelling Skin : No Skin Lesions Neuro : No Weakness, No Numbness, No Headache All other systems reviewed and are negative Yes all other systems are reviewed and are negative Constitutional: Constitutional: Reports as per HPI [facility] Past Medical History Attestation statement: The following information was validated with the patient. Medical History Diabetes TAHIR (obstructive sleep apnea) Colon cancer screening HTN (hypertension) Surgical History Hx of appendectomy Hx of colonoscopy Family History Family History Mother HTN (hypertension) Father Liver cancer Social History Social History Housing: House Are you a primary human services care specialist to a significant other at home: No Do you presently have visiting nurse or other home services: No Alcohol intake: current Alcohol intake frequency: a few times a week Alcohol type: beer Patient Tobacco Use Status: Never used Tobacco e-Cigarette/Vaping Use: Never Used Second Hand Smoke Exposure: Yes Advance Directives: No Advance Directives Information Provided: No service: No Current occupational status: employed 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 No acute distress. HEENT: Normal inspection, right eye, conjunctiva is noninjected, fluorescein stain was performed, no fluorescein uptake noted. No foreign body appreciated. PERRLA, EOMI, no surrounding periorbital edema or erythema. CVS: Normal heart rate and rhythm. Pulses normal. Respiratory: No respiratory distress Skin: Warm, dry, no rashes noted to exposed skin. Normal skin color. Normal skin turgor. Extremities: Normal to inspection Neuro: Oriented X 3. No motor deficit. No sensory deficit. Vital Signs: Vital Signs: Last Vital Signs Temp 97.9 F 11/10/25 12:00 Pulse 87 11/10/25 12:00 Resp 16 11/10/25 12:00 BP 103/50 L 11/10/25 12:00 Pulse Ox 95 11/10/25 12:00 O2 Del Method Room Air 11/10/25 12:00 BMI result Body Mass Index 33.1 Course Course Course Narrative: This is an RME: Additional HPI, ROS, PE not included below will be deferred to primary provider. RME assessment and note performed by: Natty Crane PA-C This is a 23-[id number]-male, with a hx of hypothyroidism, HTN, DM2, who presents to the ER with a complaint of right eye discomfort s/p being scratched in his right eye with a finger nail while at work. No trouble seeing. Not currently wearing contacts Plan: eye examination Medications Administered Discontinued Medications Generic Name Dose Route Start Last Admin Trade Name J Carlosq PRN Reason Stop Dose Admin Fluorescein Sodium 1 strip 11/10/25 10:44 11/10/25 10:58 Fluorescein Sodium Strip EYE-RIGHT 11/10/25 10:45 1 strip ONCE ONE Administration Tetracaine HCl 1 drop 11/10/25 10:44 11/10/25 10:58 Tetracaine Hcl/Pf 0.5% Oph Stephania 4 Ml Drops EYE-RIGHT 11/10/25 10:45 1 drop ONCE ONE Administration Medical Decision Making Medical Decision Making MDM Narrative: This is a 49-year-old male who presents emergency department after injuring his right eye while at work. He was accidentally scratched by a patient and crisis. Patient is well-appearing, fluorescein stain was performed, no fluorescein uptake, no evidence of foreign body appreciated on exam. Visual acuity was performed, 2070 in the right eye however patient states that he wears glasses which he did not use during this examination. He denies any vision changes or significant eye pain. Discussed overall workup with patient, will place patient on erythromycin ointment to prevent infection, and given referral to Dr. Anna harris, patient understands and agrees with plan. Patient stable for discharge Differential Diagnosis Differential Diagnoses: The differential diagnosis associated with the presentation includes Corneal abrasion, laceration, foreign body, conjunctivitis, puncture wound Discharge Plan Discharge Clinical Impression: Corneal irritation of right eye Patient Disposition: Home, Self-Care Instructions: Corneal Abrasion (ED) Additional Instructions: You were seen in the emergency department after injuring your right eye while you are at work today. Thankfully your eye exam does not show any foreign bodies or any abrasions noted to the surface of the eye however given this type of injury, I am going to treat you prophylactically with antibiotic ointment to ensure this does not get infected. Please use antibiotic ointment 4 times a day for the next 7 days. If any new or worsening symptoms occur including but not limited to severe eye pain, loss of vision, severe swelling, please seek emergent care. I am also giving you a referral to the automobile wrecker, you can follow-up with them for routine screening, or if any issues arise from this injury. Call to make an appointment. Prescriptions: New erythromycin 5 mg/gram (0.5 %) ointment 0.5 inch ophthalmic (eye) QID 7 Days Qty: 3.5 0RF No Action metformin 500 mg tablet 500 mg PO BID 90 Days Qty: 180 1RF levothyroxine 25 mcg tablet 25 mcg PO DAILY 90 Days Qty: 90 1RF (DME) blood pressure test kit-large Kit See Rx Instructions .Route Qty: 1 0RF Rx Instructions: As directed (DME) CPAP Machine/Device Device See Rx Instructions .Route Qty: 1 0RF Rx Instructions: Lifetime use, needs new CPAP machine- 9 cm H2O with nasal mask and heated humidifier lisinopril-hydrochlorothiazide 20-12.5 mg tablet 1 tab PO DAILY 90 Days Qty: 90 1RF amlodipine 10 mg tablet 10 mg PO DAILY 90 Days Qty: 90 1RF Referrals: Zac Boyd [Physician, Ophthalmology] Stand Alone Forms: Work/School Release Interventions: ED Discharge Assessment Last Done: 11/10/25 12:00 Discharge Date/Time: 11/10/25 12:00 Print Language: Maltese
[2025-11-10] MEDS: Fluorescein Sodium STRIP 1 STRIP EYE-RIGHT (10:58)
[2025-11-10] MEDS: Tetracaine HCl/PF 0.5% Oph Sol 4 ML DROPS 1 DROP EYE-RIGHT (10:58)
[2025-11-10 12:00] VITALS: BP 103/50; PULSE 87; RESP 16; TEMP 36.6; O2SAT 95
== END 2025-11-10 12:00 | disposition home or self-care (01) ==
PROVIDERS: Emergency Provider Emergency Medicine Emergency Medical Services; PCP Physician Assistant
DX: S05.01XA Injury of conjunctiva and corneal abrasion without foreign body, right eye, initial encounter (principal); Y35.891A Legal intervention involving other specified means, law enforcement official injured, initial encounter; Y93.89 Activity, other specified; Y92.9 Unspecified place or not applicable; Y99.0 Civilian activity done for income or pay
CPT/HCPCS: 99282; 99283